=== PATIENT | male | born 1935 | race Caucasian/White ===

== ENCOUNTER 2019-07-08 14:45 | Emergency (ER) | payer MEDICARE, SELFPAY ==
[2019-07-08 15:01] VITALS: BP 153/102; PULSE 71; RESP 16; TEMP 36.9; O2SAT 96; BMI 25.7
--- NOTE | 2019-07-08 15:15 | ECG_ITS ---
Measurements Intervals [place] Rate: 62 P: 44 MT: 166 QRS: -23 QRSD: 94 T: 50 QT: 386 QTc: 395 SINUS RHYTHM BORDERLINE LEFT AXIS DEVIATION [QRS AXIS < -20] INTERPRETATION BASED ON A DEFAULT AGE OF 40 YEARS Compared to ECG 06/06/2015 17:31:21 No significant changes Electronically Signed On 07-08-2019 20:25:43 PUMPER GAGER by Ana Scott M.D. [email or web address] f
[2019-07-08 15:55] LABS: Troponin(5th) Baseline 10 ng/mL (0-15)
--- NOTE | 2019-07-08 17:15 | ECG_ITS ---
Measurements Intervals [place] Rate: 61 P: 73 TN: 170 QRS: -27 QRSD: 96 T: 55 QT: 388 QTc: 392 SINUS RHYTHM BORDERLINE LEFT AXIS DEVIATION [QRS AXIS < -20] Compared to ECG 06/06/2015 17:31:21 No significant changes Electronically Signed On 07-08-2019 20:33:10 SOUND EDITOR by Ana Scott M.D. [id number]
[2019-07-08 17:31] LABS: Troponin 5 2HR 9.58 ng/mL (0-15)
[2019-07-08 17:39] LABS: Troponin 5 2HR Delta -0.42 ABS# (0-10)
--- NOTE | 2019-07-08 18:24 | ED_ITS ---
Entered by Kristi Eli, acting as scribe for Lana Keller MD Jul 08, 2019 14:45 HPI - Chest Pain General: Chief Complaint: Chest Pain Stated Complaint: CP Time Seen by Provider: 07/08/19 18:24 Source: patient and family Mode of arrival: ambulatory Limitations: no limitations History of Present Illness: HPI narrative: 83-year-old male who states he has had a sharp pain for last 3 days. States the pain is worse with inspiration. He denies any pain at rest. Patient is currently pain-free. He has had no vomiting or diarrhea. complaint: chest pain Onset (ago): day(s) (2 days ago) Timing of current episode: constant and still present Prior episodes: Yes Onset: during rest Pain location: substernal Severity: mild Relieving factors: nothing Exacerbating factors: other (deep breaths) Associated symptoms: Reports no associated symptoms; Deny abdominal pain, dyspnea, fever(s), nausea or vomiting Treatment prior to arrival: none Review of Systems General: Reports: 10 or more systems reviewed and unremarkable except in HPI and below Const: Denies: fever, chills, body aches or change in appetite Eyes: Denies: blurry vision or eye discomfort ENMT: Denies: throat pain or dental pain Resp: Denies: shortness of breath GI: Denies: abdominal pain, nausea, vomiting or diarrhea : Denies: painful urination Musc: Denies: neck pain or back pain Skin/Breast: Denies: rash Neuro: Denies: headache Psych: Denies: depression Can/Lymph: Denies: easy bruising All/Imm: Denies: hives PFS ED PFSH: Social History Smoking and tobacco status: never smoked Physical Exam Const: COMMON NORMALS: no apparent distress, oriented x3 and healthy appearing HENMT: COMMON NORMALS: normocephalic and head/scalp atraumatic HEAD & SCALP: normocephalic and atraumatic Eye: COMMON NORMALS: PERRL and EOMs intact bilaterally PUPIL: Yes PERRL Neck/C-Spine: COMMON NORMALS: full ROM and supple Resp: COMMON NORMALS: normal respiratory effort, no retractions, no use of accessory muscles and clear to auscultation bilaterally AUSCULTATION: clear to auscultation bilaterally Cardio: COMMON NORMALS: regular rate, regular rhythm and no murmurs RATE: regular rate RHYTHM: regular rhythm GI: COMMON NORMALS: normal to inspection, nondistended, normoactive bowel sounds, soft to palpation, non-tender and no masses PALPATION: Yes soft Extremity: COMMON NORMALS: normal to inspection and full ROM Neuro: COMMON NORMALS: oriented x3, moves all extremities and no focal motor deficits Psych: COMMON NORMALS: mental status grossly normal, thought process normal and cooperative THOUGHT PROCESS: normal thought process Skin: COMMON NORMALS: no rashes or lesions noted and no wounds GENERAL SKIN EXAM: no rashes or lesions noted Course Vital Signs: Vital signs: Vital Signs Temperature 98.5 F 07/08/19 15:01 Pulse Rate 82 07/08/19 23:07 Respiratory Rate 18 07/08/19 23:07 Blood Pressure 153/102 07/08/19 15:01 Pulse Oximetry 96 07/08/19 23:07 MDM - Chest Pain MDM Narrative: Medical decision making narrative: Patient presents here with chest pain that is atypical in nature. Patient's troponins and CT are normal. Patient has no signs of cardiac cause. CT shows no signs of pulmonary bruising. Patient is well-appearing is stable for discharge he is to follow-up with his primary care doctor in 3 to 5 days return if worsening. Lab Data: Labs: Lab Results 07/08/19 07/08/19 07/08/19 Range/Units 15:28 15:28 15:28 WBC 7.3 (4.0-10.0) 10^3/ uL RBC 5.00 (4.1-5.3) 10^6/u L Hgb 15.3 (11.7-16.6) g/dL Hct 46.8 (42.0-52.0) % MCV 93.6 (80-94) fL MCH 30.6 (28.0-34.0) pg MCHC 32.7 (30.0-36.0) g/dL RDW 13.7 (12.1-15.1) % Plt Count 275 (130-400) 10^3/c mm MPV 10.7 H (7.4-10.4) fL Neut % (Auto) 59.8 % Lymph % (Auto) 27.4 % [place] % (Auto) 8.7 % Eos % (Auto) 2.6 % Baso % (Auto) 1.1 % Neut # (Auto) 4.3 (1.8-7.7) 10^3/u L Lymph # (Auto) 2.0 (0.8-4.8) 10^3/u L [place] # (Auto) 0.6 (0.2-0.9) 10^3/u L Eos # (Auto) 0.2 (0.0-0.8) 10^3/u L Baso # (Auto) 0.1 (0.0-0.1) 10^3/u L Nucleated RBC % (a uto) 0 % Nucleated RBCs # 0.0 /100WBC D-Dimer (0-0.59) ug/mIFE U Sodium 140 (136-145) mmol/L Potassium 4.6 (3.5-5.1) mmol/L Chloride 104 (98-107) mmol/L Carbon Dioxide 25 (22-29) mmol/L Anion Gap 15.6 (5-19) BUN 14 (8-23) mg/dL Creatinine 1.3 H (0.7-1.2) mg/dL Glucose 89 (65-115) mg/dL Calcium 11.4 H (8.5-10.5) mg/dL Total Bilirubin 0.5 (0.15-1.2) mg/dL AST 19 (0-40) U/L ALT 13 (0-41) U/L Alkaline Phosphata se 84 (40-130) IU/L Troponin I 6 Hour (0-15) ng/mL Troponin I Hi Sens Del (0-12) ng/L Troponin T Baselin e 10 (0-15) ng/mL Troponin T 120 Min [place] (0-15) ng/mL Delta Troponin T (0-10) ABS# Total Protein 7.3 (6.6-8.7) g/dL Albumin 4.4 (3.5-5.2) g/dL Globulin 2.9 (1.3-4.6) g/dL 07/08/19 07/08/19 07/08/19 Range/Units 15:28 17:09 21:40 WBC (4.0-10.0) 10^3/ uL RBC (4.1-5.3) 10^6/u L Hgb (11.7-16.6) g/dL Hct (42.0-52.0) % MCV (80-94) fL MCH (28.0-34.0) pg MCHC (30.0-36.0) g/dL RDW (12.1-15.1) % Plt Count (130-400) 10^3/c mm MPV (7.4-10.4) fL Neut % (Auto) % Lymph % (Auto) % [place] % (Auto) % Eos % (Auto) % Baso % (Auto) % Neut # (Auto) (1.8-7.7) 10^3/u L Lymph # (Auto) (0.8-4.8) 10^3/u L [place] # (Auto) (0.2-0.9) 10^3/u L Eos # (Auto) (0.0-0.8) 10^3/u L Baso # (Auto) (0.0-0.1) 10^3/u L Nucleated RBC % (a uto) % Nucleated RBCs # /100WBC D-Dimer 1.66 H (0-0.59) ug/mIFE U Sodium (136-145) mmol/L Potassium (3.5-5.1) mmol/L Chloride (98-107) mmol/L Carbon Dioxide (22-29) mmol/L Anion Gap (5-19) BUN (8-23) mg/dL Creatinine (0.7-1.2) mg/dL Glucose (65-115) mg/dL Calcium (8.5-10.5) mg/dL Total Bilirubin (0.15-1.2) mg/dL AST (0-40) U/L ALT (0-41) U/L Alkaline Phosphata se (40-130) IU/L Troponin I 6 Hour 10.36 (0-15) ng/mL Troponin I Hi Sens Del 0.36 (0-12) ng/L Troponin T Baselin e (0-15) ng/mL Troponin T 120 Min [place] 9.58 (0-15) ng/mL Delta Troponin T -0.42 L (0-10) ABS# Total Protein (6.6-8.7) g/dL Albumin (3.5-5.2) g/dL Globulin (1.3-4.6) g/dL Imaging Data^: CT Chest: Radiologist's impression: Patient: Maikel De La Fuente Unit #: [id number] : 1935 Age/Sex: 83 / M ADM Date: 07/08/19 Loc: ER Room/Bed: Attending Dr: Ordering Provider/Ordering MD: Lana Keller MD Date of Service: 07/08/19 Procedure(s): CT angio chest PE protcl [id number] Accession Number(s): [id number] Report Number: [id number] PROCEDURE INFORMATION: Exam: CT Angiography Chest With Contrast Exam date and time: 07/08/2019 7:16 PM Age: 83 years old Clinical indication: Dyspnea TECHNIQUE: Imaging protocol: Computed tomographic angiography of the chest with intravenous contrast. 3D rendering: MIP and/or 3D reconstructed images were created by the technologist. Total DLP: 652.56 mGy-cm Radiation optimization: All CT scans at this facility use at least one of these dose optimization techniques: automated exposure control; mA and/or kV adjustment per patient size (includes targeted exams where dose is matched to clinical indication); or iterative reconstruction. Contrast material: VISI; Contrast volume: 95 ml; Contrast route: IV; COMPARISON: CT chest con [id number] 12/07/2015 11:53 AM FINDINGS: Pulmonary arteries: No visible pulmonary embolism. Aorta: Thoracic aorta is nonaneurysmal with mild arterial sclerotic disease. No visible intimal flap or dissection. Proximal abdominal aorta was not aneurysmal. Mild intramural thrombus. Mild arteriosclerotic disease. Lungs: Minimal dependent atelectasis lung bases. Stable calcified 6 mm granuloma apical posterior segment left upper lobe. Stable small focus of ground-glass interstitial lung disease measuring 10 mm x 5 mm since 12/07/2015. This most likely reflects parenchymal scar from an antecedent infection. Doubt of clinical significance. Mild centrilobular emphysema. No visible evidence of active interstitial or alveolar airspace disease. Pleural space: Unremarkable. No pneumothorax. No pleural effusion. Heart: Coronary artery calcifications. No cardiomegaly. No pericardial effusion. Mediastinum: Large hiatal hernia. Liver: Liver and spleen with calcified granulomas. Gallbladder and bile ducts: Gallbladder free of cholelithiasis. No visible intra or extrahepatic biliary ectasia. Pancreas: Pancreas unremarkable. Adrenals: Adrenal glands unremarkable. Kidneys and ureters: Kidneys within the field of view unremarkable for age. Mild perinephric stranding which is a nonspecific finding. Stomach and bowel: Hollow viscus within the field of view without evidence for active pathology. Diverticulosis coli without evidence for diverticulitis. Lymph nodes: Stable marginally prominent middle and posterior mediastinal lymph nodes since 2016. Bones/joints: Skeletal structures unremarkable for age. No visible osteolytic or osteoblastic destructive process within the field of view. Soft tissues: Unremarkable. CT/CT angio chest PE protcl [id number] IMPRESSION: 1. No visible evidence for pulmonary embolism. 2. Numerous non urgent/nonemergent, chronic, and age related findings as detailed in text above. Discharge Plan Discharge Patient Disposition: Home, Self-Care Clinical Impression: Chest pain Qualifiers: Chest pain type: unspecified Qualified Code(s): R07.9 - Chest pain, unspecified Condition: Stable Prescriptions: New EC-Naprosyn 500 mg tablet,delayed release (DR/EC) 500 mg PO BID PRN (Reason: pain) Qty: 20 RF: 0 Discharge Orders: Discharge Order (Routine); Ordered 07/08/19 Ordered By: Lana Keller Referrals: Hillary Jones SUPERVISOR PAINT [Family Provider] - Discharge Diet: Advance as tolerated Discharge Activity: Resume usual activity Patient Instructions: Chest Pain (ED) Discharge Date/Time: 07/08/19 23:07 Coding Level of Care Code ED Disability Liaison Officer for Chg Fwd Exam Comprehensive The documentation recorded by the Sreedhar winslow Bridget Annette, accurately reflects the service I personally performed and the decisions made by Arianna manzo Korby, MD Jul 08, 2019 14:45
--- NOTE | 2019-07-08 18:24 | XR_ITS ---
WS: [id number] XR chest 1V portable [id number] REASON FOR EXAM: cp FINDINGS: Comparisons were made to March 27, 2018. A calcified granuloma seen in the left hilum. The heart and mediastinal interfaces are normal. The lung prieto are well aerated. No pneumonia, pleural effusion, pulmonary edema, or mass effect. No evidence of pneumothorax. The hilum and apices otherwise normal. XR/XR chest 1V portable [id number] IMPRESSION: Negative chest for active pathology.
[2019-07-08 18:43] LABS: Basophils # 0.1 10^3/uL (0.0-0.1); Basophils % 1.1 %; Eosinophils # 0.2 10^3/uL (0.0-0.8); Eosinophils % 2.6 %; Hematocrit 46.8 % (42.0-52.0); Hemoglobin 15.3 g/dL (11.7-16.6); Lymphocytes % 27.4 %; Mean Corpuscular HGB Conc 32.7 g/dL (30.0-36.0); Mean Corpuscular Hemoglobin 30.6 pg (28.0-34.0); Mean Corpuscular Volume 93.6 fL (80-94); Mean Platelet Volume 10.7 fL (7.4-10.4); Monocytes # 0.6 10^3/uL (0.2-0.9); Monocytes % 8.7 %; Neutrophils # 4.3 10^3/uL (1.8-7.7); Neutrophils % 59.8 %; Nucleated Red Blood Cells % 0 %; Platelet Count 275 10^3/cmm (130-400); Red Cell Distribution Width 13.7 % (12.1-15.1); White Blood Count 7.3 10^3/uL (4.0-10.0)
--- NOTE | 2019-07-08 18:45 | PC.NURSE ---
Patient states that he started with chest pain over the past few days that occurs at rest with deep inspiration. Patient states the pain is shooting/stabbing from left chest and into the back lasting for just a few seconds. Patient denies any current pain at this time. Will continue to monitor.
[2019-07-08 18:59] LABS: D Dimer 1.66 ug/mIFEU (0-0.59)
[2019-07-08 19:02] LABS: Alanine Aminotransferase 13 U/L (0-41); Albumin Level 4.4 g/dL (3.5-5.2); Alkaline Phosphatase 84 IU/L (40-130); Anion Gap 15.6 (5-19); Aspartate Amino Transferase 19 U/L (0-40); Blood Urea Nitrogen 14 mg/dL (8-23); Calcium 11.4 mg/dL (8.5-10.5); Carbon Dioxide 25 mmol/L (22-29); Chloride 104 mmol/L (98-107); Globulin 2.9 g/dL (1.3-4.6); Glucose 89 mg/dL (65-115); Potassium 4.6 mmol/L (3.5-5.1); Sodium 140 mmol/L (136-145); Total Bilirubin 0.5 mg/dL (0.15-1.2); Total Protein 7.3 g/dL (6.6-8.7)
--- NOTE | 2019-07-08 19:02 | CTR_ITS ---
PROCEDURE INFORMATION: Exam: CT Angiography Chest With Contrast Exam date and time: 07/08/2019 7:16 PM Age: 83 years old Clinical indication: Dyspnea TECHNIQUE: Imaging protocol: Computed tomographic angiography of the chest with intravenous contrast. 3D rendering: MIP and/or 3D reconstructed images were created by the technologist. Total DLP: 652.56 mGy-cm Radiation optimization: All CT scans at this facility use at least one of these dose optimization techniques: automated exposure control; mA and/or kV adjustment per patient size (includes targeted exams where dose is matched to clinical indication); or iterative reconstruction. Contrast material: VISI; Contrast volume: 95 ml; Contrast route: IV; COMPARISON: CT chest wo con [id number] 12/07/2015 11:53 AM FINDINGS: Pulmonary arteries: No visible pulmonary embolism. Aorta: Thoracic aorta is nonaneurysmal with mild arterial sclerotic disease. No visible intimal flap or dissection. Proximal abdominal aorta was not aneurysmal. Mild intramural thrombus. Mild arteriosclerotic disease. Lungs: Minimal dependent atelectasis lung bases. Stable calcified 6 mm granuloma apical posterior segment left upper lobe. Stable small focus of ground-glass interstitial lung disease measuring 10 mm x 5 mm since 12/07/2015. This most likely reflects parenchymal scar from an antecedent infection. Doubt of clinical significance. Mild centrilobular emphysema. No visible evidence of active interstitial or alveolar airspace disease. Pleural space: Unremarkable. No pneumothorax. No pleural effusion. Heart: Coronary artery calcifications. No cardiomegaly. No pericardial effusion. Mediastinum: Large hiatal hernia. Liver: Liver and spleen with calcified granulomas. Gallbladder and bile ducts: Gallbladder free of cholelithiasis. No visible intra or extrahepatic biliary ectasia. Pancreas: Pancreas unremarkable. Adrenals: Adrenal glands unremarkable. Kidneys and ureters: Kidneys within the field of view unremarkable for age. Mild perinephric stranding which is a nonspecific finding. Stomach and bowel: Hollow viscus within the field of view without evidence for active pathology. Diverticulosis coli without evidence for diverticulitis. Lymph nodes: Stable marginally prominent middle and posterior mediastinal lymph nodes since 2015. Bones/joints: Skeletal structures unremarkable for age. No visible osteolytic or osteoblastic destructive process within the field of view. Soft tissues: Unremarkable. CT/CT angio chest PE protcl [id number] IMPRESSION: 1. No visible evidence for pulmonary embolism. 2. Numerous non urgent/nonemergent, chronic, and age related findings as detailed in text above. Radiation Dose CTDIVOL = (mGy): DLP = 652.56 (mGy-cm)
[2019-07-08] MEDS: hyDRALAzine 20 mg/mL INJ 1 mL 10 MG IVP (20:56)
[2019-07-08] MEDS: diphenhydrAMINE 50 mg/mL SDV 1mL IVP (20:57)
[2019-07-08] MEDS: hydrocortisone 100 mg/2 mL SDV IVP (20:57)
[2019-07-08] MEDS: iodixanol 320 mg/mL 100mL Btl IV (21:12)
[2019-07-08 21:57] LABS: Troponin 5 6HR 10.36 ng/mL (0-15); Troponin 5 6HR Delta 0.36 ng/L (0-12)
[2019-07-08] MEDS: ondansetron 2 mg/ML SDV 2 mL 4 MG IVP (22:02)
[2019-07-08] MEDS: sodium chloride 0.9% 1,000 ML 999 ML IV (22:02)
[2019-07-08 23:07] VITALS: PULSE 82; RESP 18; O2SAT 96
== END 2019-07-08 23:07 | disposition home or self-care (01) ==
PROVIDERS: Family Medicine; Emergency Provider Emergency Medicine; Family Provider Nurse Practitioner Primary Care
DX: R07.9 Chest pain, unspecified (principal)
CPT/HCPCS: 36415; 71045; 71275; 80053; 84484; 85025; 85378; 93005; 96361; 96374; 96375; 99282; 99284; J0360; J1200; J1720; J2405; J7030; Q9967

== ENCOUNTER 2019-09-13 07:38 | Emergency (ER) | payer MEDICARE, SELFPAY ==
[2019-09-13 07:40] VITALS: BP 188/87; PULSE 62; RESP 16; TEMP 36.9; O2SAT 95; BMI 25.2
--- NOTE | 2019-09-13 07:56 | W.ED.GENADLT ---
HPI - General Adult General: Chief complaint: General Medical Stated complaint: Left flank/side pain post-op Time Seen by Provider: 09/13/19 07:41 History of Present Illness: HPI narrative: 83-year-old male comes in with left flank pain. Worse with deep inspiration. Began early this morning around 4 AM he is not had any skin changes or rash. He did have an angiogram with stenting yesterday denies any chest pain he does have some shortness of breath but he says that is chronic and has not really changed at all he denies fever sweats or chills no dysuria urgency or frequency or abdominal pain no noticed hematuria no history of renal stones no nausea vomiting or diarrhea. Called and discussed with a physician who he seen yesterday. 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 Onset (ago): hour(s) Location: abdomen (Left flank pain) Radiation: non-radiation Severity: severe Quality: stabbing Pain Consistency: intermittent Relieving factors: none Exacerbating factors: other (Deep breath) Associated symptoms: Reports dyspnea; Deny chest pain, cough, diaphoresis, nausea, rash, vomiting or weakness Treatments prior to arrival: none Review of Systems Const: Denies: diaphoresis ENMT: Denies: throat pain, ear pain, nasal discharge or nasal congestion Card: Denies: chest pain Resp: Reports: shortness of breath GI: Denies: nausea or vomiting : Denies: flank pain, painful urination, urinary frequency or urinary urgency Skin/Breast: Denies: rash or itching [facility] ED PFSH: Medical History (Updated 09/13/19 @ 11:09 by Osman Fox DO) BPH (benign prostatic hyperplasia) Coronary artery disease Pneumothorax Surgical History (Updated 09/13/19 @ 07:59 by Osman Fox DO) H/O vasectomy History of appendectomy S/P TURP Social History (Updated 09/13/19 @ 07:59 by Osman Fox DO) Smoking and tobacco status: former smoker Alcohol intake: never Physical Exam Const: COMMON NORMALS: no apparent distress GENERAL APPEARANCE: cooperative and comfortable ORIENTATION/CONSCIOUSNESS: Yes awake, Yes oriented to person, Yes oriented to place and Yes oriented to time HENMT: COMMON NORMALS: normocephalic, head/scalp atraumatic, hearing grossly normal bilaterally, external ears normal, EAC's normal, TM's normal bilaterally, nasal mucous membranes and turbinates normal, moist oral mucous membranes and oropharynx normal HEAD & SCALP: normocephalic and atraumatic NOSE: nasal mucous membranes and turbinates normal EXTERNAL EAR: Yes external ears normal EXTERNAL AUDITORY CANAL: EAC's normal TYMPANIC MEMBRANE: TM's normal bilaterally Eye: COMMON NORMALS: PERRL, EOMs intact bilaterally, conjunctivae normal and no scleral icterus CONJUNCTIVA: Yes conjunctivae normal PUPIL: Yes PERRL Neck/C-Spine: COMMON NORMALS: full ROM, no lymphadenopathy, supple and no JVD Lymph: LYMPHATIC: no lymphadenopathy noted and no lymphedema noted Resp: COMMON NORMALS: normal respiratory effort, no retractions, no use of accessory muscles and clear to auscultation bilaterally AUSCULTATION: clear to auscultation bilaterally Cardio: COMMON NORMALS: no JVD, regular rate, regular rhythm and no murmurs RATE: regular rate RHYTHM: regular rhythm GI: COMMON NORMALS: soft to palpation and no hepatosplenomegaly AUSCULTATION: Yes normoactive bowel sounds PALPATION: Yes soft, No tender, No guarding and Yes no hepatosplenomegaly Extremity: COMMON NORMALS: normal to inspection, normal capillary refill, no clubbing, cyanosis or edema, no calf tenderness and no pedal edema Neuro: SENSORIUM/ORIENTATION: Yes oriented to person, Yes oriented to place and Yes oriented to time Skin: COMMON NORMALS: no rashes or lesions noted GENERAL SKIN EXAM: no rashes or lesions noted Course Vital Signs: Vital signs: Vital Signs Temperature 98.5 F 09/13/19 07:40 Pulse Rate 75 09/13/19 11:23 Respiratory Rate 19 H 09/13/19 11:23 Blood Pressure 173/89 09/13/19 11:23 Pulse Oximetry 97 09/13/19 11:23 MDM - General Adult MDM Narrative: Medical decision making narrative: Called and discussed the vascular surgeon who did the stenting he had done yesterday. It was actually a subclavian stent by a wrist approach so potential for emboli shower from that to the spleen is really 0. 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 If he has significant worsening symptoms needs to return to the emergency room. Lab Data: Labs: Lab Results 09/13/19 09/13/19 09/13/19 Range/Units 08:17 08:45 08:45 WBC 10.7 H (4.0-10.0) 10^3/ uL RBC 4.85 (4.1-5.3) 10^6/u L Hgb 14.9 (11.7-16.6) g/dL Hct 45.7 (42.0-52.0) % MCV 94.2 H (80-94) fL MCH 30.7 (28.0-34.0) pg MCHC 32.6 (30.0-36.0) g/dL RDW 13.6 (12.1-15.1) % Plt Count 234 (130-400) 10^3/c mm MPV 10.0 (7.4-10.4) fL Neut % (Auto) 67.6 % Lymph % (Auto) 18.9 % [facility] % (Auto) 10.3 % Eos % (Auto) 2.1 % Baso % (Auto) 0.5 % Neut # (Auto) 7.2 (1.8-7.7) 10^3/u L Lymph # (Auto) 2.0 (0.8-4.8) 10^3/u L [place] # (Auto) 1.1 H (0.2-0.9) 10^3/u L Eos # (Auto) 0.2 (0.0-0.8) 10^3/u L Baso # (Auto) 0.1 (0.0-0.1) 10^3/u L Nucleated RBC % (a uto) 0 % Nucleated RBCs # 0.0 /100WBC Sodium 140 (136-145) mmol/L Potassium 4.4 (3.5-5.1) mmol/L Chloride 103 (98-107) mmol/L Carbon Dioxide 28 (22-29) mmol/L Anion Gap 13.4 (5-19) BUN 14 (8-23) mg/dL Creatinine 1.4 H (0.7-1.2) mg/dL Glucose 115 (65-115) mg/dL Calculated Osmolal ity 287 (285-295) mOsm/k g Calcium 10.0 (8.5-10.5) mg/dL Total Bilirubin 0.6 (0.15-1.2) mg/dL AST 18 (0-40) U/L ALT 13 (0-41) U/L Alkaline Phosphata se 78 (40-130) IU/L Total Protein 6.7 (6.6-8.7) g/dL Albumin 3.7 (3.5-5.2) g/dL Globulin 3.0 (1.3-4.6) g/dL Lipase 25 (13-60) U/L Urine Color Yellow (Yellow) Urine Appearance Clear (CLEAR) Urine pH 7 (5-7) Ur Specific Gravit y 1.005 (1.005-1.030) Urine Protein Neg (Negative) Urine Glucose (UA) Norm (Normal) Urine Ketones Negative (Negative) Urine Blood Neg (Negative) Urine Nitrate Negative (Negative) Urine Bilirubin Neg (NEGATIVE) Urine Urobilinogen Norm (Negative) mg/dL Ur Leukocyte Simran ase Negative (Negative) Imaging Data^: CT Abd/Pel: Radiologist's impression: CT abdomen pelvis w con* [id number] REASON FOR EXAM: abd pain IV CONTRAST ADMINISTERED: 95 mL Visipaque 320 95 mL TOTAL EXAM DLP: 587.[address] scans at [facility] use at least one of these dose optimization techniques: automated exposure control; mA and/or kV adjustment per patient size (includes targeted exams where dose is matched to clinical indication); or iterative reconstruction. FINDINGS: A prominent hiatal hernia is evident. The lower lungs appear to be essentially normal. The spleen shows hypodensities throughout the spleen consistent and suggestive of splenic infarction. Small calcified granulomas are again seen throughout the spleen. The liver was within normal limits. The gallbladder was sonolucent no stones are seen in the gallbladder. The head, body, tail of the pancreas were normal. The stomach showed no gross abnormalities other than the hiatal hernia. Aorta proximally measured 3.28 cm. Distally above the bifurcation measures 4.2 cm consistent with aneurysmal changes. The right and left kidneys were essentially normal. The left kidney shows very small cysts. The adrenal glands bilaterally were normal. The right colon appear to be normal appendix was not seen. The small bowel pattern appear to be normal. The urinary bladder was somewhat contracted deviated is toward the right side and there appears to be a small prostate evident. The anorectal area was normal. No masses are seen. The right inguinal area shows a small hernia no bowel in the hernia. The bony pelvis was essentially normal. Mild degenerate changes in the lumbar spine. 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 Small inguinal hernia with no bowel in the hernia on the right side. Dictated By:Gary Wu DO Discharge Plan Discharge Patient Disposition: Home, Self-Care Clinical Impression: Infarction of spleen Condition: Stable Prescriptions: New hydrocodone-acetaminophen 5-325 mg tablet 1 tab PO Q6H PRN (Reason: pain) Qty: 20 RF: 0 Discontinued acetaminophen-codeine 300-30 mg tablet 1 tab PO Q6H PRN (Reason: Pain) RF: 0 No Action atorvastatin 40 mg tablet 40 mg PO DAILY RF: 0 clopidogrel 75 mg tablet 75 mg PO DAILY RF: 0 losartan 25 mg tablet 25 mg PO DAILY RF: 0 aspirin 81 mg Tablet,Chewable 81 mg PO DAILY RF: 0 Discharge Orders: Discharge Order (Routine); Ordered 09/13/19 Ordered By: Osman Fox Discharge Diet: Usual diet Discharge Activity: Increase activity as tolerated Activity Restrictions/Additional Instructions: Follow-up with your regular doctor on Monday or Monday. Return if any further problems. Discharge Date/Time: 09/13/19 11:23 Coding Level of Care Code ED Electronic Scale Tester for Juan David Fwd Exam Comprehensive
--- NOTE | 2019-09-13 08:24 | XR_ITS ---
WS: [id number] XR chest 1V portable [id number] REASON FOR EXAM: dyspnea/cough FINDINGS: A stent is seen on the left side along the subclavian artery. The heart is not enlarged. The lung prieto are well aerated. Scattered granulomas are noted. No pneumothorax is noted. The lung prieto show no pneumonia, pleural effusion, pulmonary edema, or mass effect. XR/XR chest 1V portable [id number] IMPRESSION: Negative chest for acute findings.
--- NOTE | 2019-09-13 08:24 | ECG_ITS ---
Measurements Intervals [place] Rate: 61 P: 34 [place]: 165 QRS: -28 QRSD: 94 T: 31 QT: 379 QTc: 384 SINUS RHYTHM WITH SINUS ARRHYTHMIA BORDERLINE LEFT AXIS DEVIATION [QRS AXIS < -20] Compared to ECG 07/08/2019 17:45:59 No significant changes Electronically Signed On 09-13-2019 12:22:32 CDT by Akila Fisher M.D. [id number] f
--- NOTE | 2019-09-13 08:24 | CT_ITS ---
WS: [id number] CT abdomen pelvis w con* [id number] REASON FOR EXAM: abd pain IV CONTRAST ADMINISTERED: 95 mL Visipaque 320 95 mL TOTAL EXAM DLP: 587.[address] scans at [facility] use at least one of these dose optimization techniques: automat ed exposure control; mA and/or kV adjustment per patient size (includes targeted exams where dose is matched to clinical indication); or iterative reconstruction. FINDINGS: A prominent hiatal hernia is evident. The lower lungs appear to be essentially normal. The spleen shows hypodensities throughout the spleen consistent and suggestive of splenic infarction. Small calcified granulomas are again seen throughou t the spleen. The liver was within normal limits. The gallbladder was sonolucent no stones are seen in the gallbladder. The head, body, tail of the pancreas were normal. The stomach showed no gross abnormalities other than the hiatal hernia. Aorta proximally measured 3.28 cm. Distally above the bifurcation measures 4.2 cm consistent with ane urysmal changes. The right and left kidneys were essentially normal. The left kidney shows very small cysts. The adrenal glands bilaterally were normal. The right colon appear to be normal appendix was not seen . The small bowel pattern appear to be normal. The urinary bladder was somewhat contracted deviated is toward the right side and there appears to be a small prostate evident. The anorectal area was normal. No masses are seen. The right inguinal area shows a small hernia no bowel in the hernia. The bony pelvis was essentially normal. Mild degenerate changes in the lumbar spine. 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 Small inguinal hernia with no bowel in the hernia on the right side.
[2019-09-13 08:45] LABS: Add Urine Microscopic? NO
[2019-09-13 08:48] LABS: Bilirubin Urine Neg (NEGATIVE); Blood Urine Neg (Negative); Glucose Urine UA Norm (Normal); Ketones Urine Negative (Negative); Leukocyte Esterase Urine Negative (Negative); Nitrate Urine Negative (Negative); Protein Urine Neg (Negative); Specific Gravity, Urine 1.005 (1.005-1.030); Urine Appearance Clear (CLEAR); Urine Color Yellow (Yellow); Urobilinogen Urine Norm (Negative); pH Urine 7 (5-7)
[2019-09-13 08:57] LABS: Basophils # 0.1 10^3/uL (0.0-0.1); Basophils % 0.5 %; Eosinophils # 0.2 10^3/uL (0.0-0.8); Eosinophils % 2.1 %; Hematocrit 45.7 % (42.0-52.0); Hemoglobin 14.9 g/dL (11.7-16.6); Lymphocytes % 18.9 %; Mean Corpuscular HGB Conc 32.6 g/dL (30.0-36.0); Mean Corpuscular Hemoglobin 30.7 pg (28.0-34.0); Mean Corpuscular Volume 94.2 fL (80-94); Monocytes # 1.1 10^3/uL (0.2-0.9); Monocytes % 10.3 %; Neutrophils # 7.2 10^3/uL (1.8-7.7); Neutrophils % 67.6 %; Nucleated Red Blood Cells % 0 %; Platelet Count 234 10^3/cmm (130-400); Red Blood Count 4.85 10^6/uL (4.1-5.3); Red Cell Distribution Width 13.6 % (12.1-15.1); White Blood Count 10.7 10^3/uL (4.0-10.0)
[2019-09-13 09:07] LABS: Alanine Aminotransferase 13 U/L (0-41); Albumin Level 3.7 g/dL (3.5-5.2); Alkaline Phosphatase 78 IU/L (40-130); Anion Gap 13.4 (5-19); Aspartate Amino Transferase 18 U/L (0-40); Blood Urea Nitrogen 14 mg/dL (8-23); Carbon Dioxide 28 mmol/L (22-29); Chloride 103 mmol/L (98-107); Glucose 115 mg/dL (65-115); Lipase 25 U/L (13-60); Osmolality Calculated 287 mOsm/kg (285-295); Potassium 4.4 mmol/L (3.5-5.1); Sodium 140 mmol/L (136-145); Total Bilirubin 0.6 mg/dL (0.15-1.2); Total Protein 6.7 g/dL (6.6-8.7)
[2019-09-13] MEDS: hydrocortisone 100 mg/2 mL SDV IVP (09:07)
[2019-09-13] MEDS: diphenhydrAMINE 50 mg/mL SDV 1mL IVP (09:07)
[2019-09-13] MEDS: iodixanol 320 mg/mL 100mL Btl IV (09:28)
[2019-09-13 11:23] VITALS: BP 173/89; PULSE 75; RESP 19; O2SAT 97
== END 2019-09-13 11:23 | disposition home or self-care (01) ==
PROVIDERS: Emergency Provider Family Medicine
DX: D73.5 Infarction of spleen (principal); Z79.02 Long term (current) use of antithrombotics/antiplatelets; Z79.82 Long term (current) use of aspirin; I25.10 Atherosclerotic heart disease of native coronary artery without angina pectoris; Z87.891 Personal history of nicotine dependence
CPT/HCPCS: 12345; 36415; 71045; 74177; 80053; 81003; 83690; 85025; 93005; 96374; 96375; 99283; A9270; J1200; J1720; Q9967

== ENCOUNTER 2020-12-15 14:39 | Outpatient (CLI) | payer MEDICARE, SELFPAY ==
[2020-12-15 15:06] LABS: Basophils # 0.1 10^3/uL (0.0-0.1); Basophils % 0.9 %; Eosinophils # 0.3 10^3/uL (0.0-0.8); Eosinophils % 3.1 %; Hematocrit 44.6 % (42.0-52.0); Hemoglobin 14.4 g/dL (11.7-16.6); Lymphocytes # 2.4 10^3/uL (0.8-4.8); Lymphocytes % 27.7 %; Mean Corpuscular HGB Conc 32.3 g/dL (30.0-36.0); Mean Corpuscular Hemoglobin 29.8 pg (28.0-34.0); Mean Corpuscular Volume 92.3 fL (80-94); Mean Platelet Volume 9.8 fL (7.4-10.4); Monocytes # 0.6 10^3/uL (0.2-0.9); Monocytes % 7.1 %; Neutrophils # 5.34 10^3/uL (1.8-7.7); Neutrophils % 60.9 %; Nucleated Red Blood Cells % 0 %; Platelet Count 259 10^3/cmm (130-400); Red Blood Count 4.83 10^6/uL (4.1-5.3); Red Cell Distribution Width 13.3 % (12.1-15.1); White Blood Count 8.8 10^3/uL (4.0-10.0)
[2020-12-15 15:22] LABS: Urine Creatinine 105 mg/dL (39-259); Urine Protein Random 12 mg/dL
[2020-12-15 15:23] LABS: UPRO/UCREAT Ratio 0.11 mg/mg CR
[2020-12-15 15:39] LABS: Calcium 9.9 mg/dL (8.5-10.5)
[2020-12-15 15:41] LABS: Parathyroid Hormone 185.5 pg/mL (15-65)
[2020-12-15 15:58] LABS: 25 Hydroxy Vitamin D 26 ng/mL (30-100); Albumin Level 4.2 g/dL (3.5-5.2); Anion Gap 11.5 (5-19); Blood Urea Nitrogen 14 mg/dL (8-23); Calcium 10.1 mg/dL (8.5-10.5); Carbon Dioxide 26 mmol/L (22-29); Chloride 105 mmol/L (98-107); Glucose 131 mg/dL (65-115); Phosphorus 2.2 mg/dL (2.5-4.5); Potassium 4.5 mmol/L (3.5-5.1); Sodium 138 mmol/L (136-145)
== END 2020-12-15 14:40 | disposition home or self-care (01) ==
PROVIDERS: Visit Provider Internal Medicine
DX: N18.32 Chronic kidney disease, stage 3b (principal)
CPT/HCPCS: 36415; 80069; 82306; 82310; 82570; 83970; 84156; 85025

== ENCOUNTER 2020-12-21 13:39 | Outpatient (CLI) | payer MEDICARE, SELFPAY ==
[2020-12-21 15:10] LABS: Alanine Aminotransferase 17 U/L (0-41); Albumin Level 4.4 g/dL (3.5-5.2); Alkaline Phosphatase 95 IU/L (40-130); Aspartate Amino Transferase 21 U/L (0-40); Globulin 2.8 g/dL (1.3-4.6); Total Bilirubin 0.4 mg/dL (0.15-1.2); Total Protein 7.2 g/dL (6.6-8.7)
[2020-12-22 08:18] LABS: PROTEIN, TOTAL 7.2 g/dL (6.1-8.1)
[2020-12-22 12:06] LABS: KAPPA/LAMBDA LIGHT CHAINS FREE 1.47 (0.26-1.65); LAMBDA LIGHT CHAIN, FREE, SERU 19.1 mg/L (5.7-26.3)
[2020-12-22 14:29] LABS: ALBUMIN 4.3 g/dL (3.8-4.8); ALPHA 1 GLOBULIN 0.3 g/dL (0.2-0.3); ALPHA 2 GLOBULIN 0.9 g/dL (0.5-0.9); BETA 1 GLOBULIN 0.4 g/dL (0.4-0.6); BETA 2 GLOBULIN 0.4 g/dL (0.2-0.5)
== END 2020-12-21 13:40 | disposition home or self-care (01) ==
LOC: LAB 13:49
PROVIDERS: Visit Provider Internal Medicine
DX: E83.52 Hypercalcemia (principal)
CPT/HCPCS: 80076; 83883; 84155; 84165

== ENCOUNTER 2021-04-07 12:59 | Emergency (ER) | payer MEDICARE, SELFPAY ==
[2021-04-07 13:21] VITALS: BP 123/65; PULSE 55; RESP 18; TEMP 36.1; O2SAT 97; BMI 24.4
--- NOTE | 2021-04-07 13:46 | ED_ITS ---
HPI - Dizziness General: Chief Complaint: Dizziness Stated Complaint: DIZZY Time Seen by Provider: 04/07/21 13:29 History of Present Illness: HPI Narrative: Patient just finished a round of antibiotics for strep throat. Patient has fullness in his ears and has dizziness when moving his head quickly this started yesterday to get worse and been going on for the last few days. Denies chest pain shortness of breath there heart problems. Is currently being worked up for chronic kidney disease. MD elicited complaint: dizziness Pertinent past history: inner ear problems and other (Recent treatment for strep throat) Onset (ago): day(s) Timing: gradual onset Severity: mild Description: sense of movement Context: change in medication Relieving factors: remaining still Associated symptoms: Reports no associated symptoms; Denies chest pain, chills, headache(s), nausea, nasal congestion or vomiting Associated neuro symptoms: Reports no associated symptoms Review of Systems Const: Denies: fever(s), chills or body aches Eyes: Denies: change in vision or blurry vision ENMT: Denies: throat pain or nasal congestion Card: Denies: chest pain or dyspnea on exertion Resp: Denies: dyspnea, productive cough or non-productive cough GI: Denies: abdominal pain, nausea or vomiting : Denies: difficulty urinating Musc: Denies: extremity pain Skin/Breast: Denies: rash Neuro: Reports: dizziness; Denies: headache(s) Psych: Denies: anxiety or depression Can/Lymph: Denies: easy bruising PFSH ED PFSH: Medical History (Updated 04/07/21 @ 13:41 by SYDNIE Contreras) BPH (benign prostatic hyperplasia) Coronary artery disease Pneumothorax Surgical History (Updated 09/13/19 @ 07:59 by Osman Fox DO) H/O vasectomy History of appendectomy S/P TURP Social History (Updated 09/13/19 @ 07:59 by Osman Fox DO) Smoking and tobacco status: former smoker Alcohol intake: never Physical Exam Const: COMMON NORMALS: no acute distress, average body habitus and patient oriented x3 HENMT: COMMON NORMALS: normocephalic HEAD & SCALP: normal to inspection and normocephalic FACE & SINUS: normal facial exam TYMPANIC MEMBRANE: TM normal on the left and TM abnormal TM laterality: right Details: fluid behind TM and loss of landmarks THROAT: posterior oropharynx normal Eye: COMMON NORMALS: conjunctivae normal GENERAL EYE: appearance normal, both eyes and all related structures CONJUNCTIVA: Yes conjunctivae normal Neck/C-Spine: COMMON NORMALS: no lymphadenopathy and no JVD Chest: COMMONS NORMALS: normal inspection of the chest Resp: COMMON NORMALS: normal respiratory effort and clear to auscultation bilaterally AUSCULTATION: clear to auscultation bilaterally Cardio: COMMON NORMALS: no JVD, regular rate and regular rhythm RATE: regular rate RHYTHM: regular rhythm GI: COMMON NORMALS: Normal to inspection, nondistended, normoactive bowel sounds present Extremity: COMMON NORMALS: normal to inspection and full ROM Neuro: COMMON NORMALS: patient oriented x3 Course 2 Vital Signs: Vital signs: Vital Signs Temperature 97 F L 04/07/21 13:21 Pulse Rate 55 L 04/07/21 13:21 Respiratory Rate 18 04/07/21 13:21 Blood Pressure 123/65 04/07/21 13:21 Pulse Oximetry 97 04/07/21 13:21 MDM - Dizziness MDM Narrative: Medical decision making narrative: Patient presents with dizziness with movement. Had a recent strep infection was on antibiotics. Physical exam was noncontributory except fluid behind the right eardrum. Patient did have dizziness with sudden movement of the head. No nystagmus noted. Throat without lymphadenopathy or edema. Heart rate was normal. Patient diagnosed with inner ear dysfunction patient follow-up chiropractor and family medical provider. Discharge Plan Discharge Patient Disposition: Home Clinical Impression: Inner ear dysfunction Qualifiers: Laterality: bilateral Qualified Code(s): H83.93 - Unspecified disease of inner ear, bilateral Condition: Stable Prescriptions: New prednisone 20 mg tablet 20 mg PO DAILY Qty: 7 RF: 0 meclizine 25 mg tablet 12.5 mg PO QID PRN (Reason: dizziness) Qty: 14 RF: 0 Afrin (oxymetazoline) 0.05 % spray,non-aerosol 2 spray intranasal BID 3 Days Qty: 15 RF: 0 No Action atorvastatin 40 mg tablet 40 mg PO DAILY RF: 0 clopidogrel 75 mg tablet 75 mg PO DAILY RF: 0 losartan 25 mg tablet 25 mg PO DAILY RF: 0 aspirin 81 mg Tablet,Chewable 81 mg PO DAILY RF: 0 hydrocodone-acetaminophen 5-325 mg tablet 1 tab PO Q6H PRN (Reason: pain) Qty: 20 RF: 0 Discharge Orders: Discharge ED (Routine); Ordered 04/07/21 Ordered By: Joseluis Henderson Discharge Diet: Usual diet Discharge Activity: Increase activity as tolerated Patient Instructions: Vertigo (ED) Activity Restrictions/Additional Instructions: Follow-up with medical provider as directed. Take medications as prescribed. Return to the ER or your medical provider if condition worsens. Please read and understand discharge instructions. If any questions ask please. Can follow-up chiropractor to have it Hallpike maneuver performed. Coding Level of Care Code ED Diabetes Educator for Santanag Fwd Exam Comprehensive
== END 2021-04-07 13:45 | disposition home or self-care (01) ==
PROVIDERS: Emergency Provider Nurse Practitioner Family; PCP Nurse Practitioner Primary Care
DX: H83.93 Unspecified disease of inner ear, bilateral (principal); Z79.02 Long term (current) use of antithrombotics/antiplatelets; Z79.82 Long term (current) use of aspirin; I25.10 Atherosclerotic heart disease of native coronary artery without angina pectoris; Z87.891 Personal history of nicotine dependence
CPT/HCPCS: 99282

== ENCOUNTER 2024-11-30 09:07 | Emergency (ER) | payer MEDICARE, SELFPAY ==
[2024-11-30] VITALS (9 sets, daily range): BP systolic 143–204; BP diastolic 62–92; PULSE 63–85; RESP 16–25; TEMP 36.3; O2SAT 95–100; BMI 25.0
--- NOTE | 2024-11-30 09:12 | ECG_ITS ---
[facility] Test Date: 2024-11-30 Pat Name: Maikel De La Fuente Department: Room: Gender: Male Sort Operations Supervisor: : 1935 Requested By: Osman Mckay Order Number: [id number] Reading MD: Measurements Intervals [place] Rate: 65 P: 52 [place]: 179 QRS: -36 QRSD: 93 T: 69 QT: 387 QTc: 405 Interpretive Statements SINUS RHYTHM LEFT AXIS DEVIATION [QRS AXIS < -30] MINIMAL ST DEPRESSION [0.025+ mV ST DEPRESSION] No previous ECG available for comparison [email or web address] [id number]
--- OUTSIDE RECORDS SUMMARY | 2024-11-30 09:13 | XMS_ITS | Encounter Summary ---
Author Organization [facility] Address [address] [place] [address] Phone Care Team Providers Care Guard Manager Name Role Phone Hillary Jones SURGICAL CODER Primary Care Provider [phone] Reason for Visit * Reason Comments Med Refill Encounter Details Date Type Department Care Team (Late st Contact Info) Description 07/14/2022 Refill [facility] [address] [place] [address] Monroe Belcher MD [address] [place] [address] Social History Tobacco Use Types Packs/Day Years Used Date Smoking Tobacco: Former Cigarettes 1 948 - 1996 Smokeless Tobacco: Never Alcohol Use Standard Drinks/Week Comments Never 0 (1 standard drink = 0.6 oz pur e alcohol) Sex and Gender Information Value Date Recorded Sex Assigned at Not on file Legal Sex Male 12:41 PM EDT Gender Identity Not on file Sexual Orientation Not on file documented as of this encounter Plan of Treatment Not on file documented as of this encounter Visit Diagnoses Not on filedocumented in this encounter Care Teams Guard Manager Relationship Specialty Start Date End Date Hillary Jones NP [address] [place] [address] PCP - General Family Medicine 07/21/21 documented as of this encounter
--- OUTSIDE RECORDS SUMMARY | 2024-11-30 09:13 | XMS_ITS | Encounter Summary ---
Author Organization [facility] Address [address] [facility] [address] [place] [address] Phone Care Team Providers Care Molded Candles Wicker Name Role Phone Hillary Jones NP Primary Care Provider [phone] Reason for Visit * Reason Comments Med Refill Encounter Details Date Type Department Care Team (Late st Contact Info) Description 07/15/2024 [facility]ill [facility] [address] [place] [address] Monroe Belcher MD [address] [place] [address] Social History Tobacco Use Types Packs/Day Years Used Date Smoking Tobacco: Former Cigarettes 1996 Smokeless Tobacco: Never Alcohol Use Standard Drinks/Week Comments Never 0 (1 standard drink = 0.6 oz pur e alcohol) Sex and Gender Information Value Date Recorded Sex Assigned at Not on file Legal Sex Male 12:41 PM EDT Gender Identity Not on file Sexual Orientation Not on file documented as of this encounter Miscellaneous Notes * Telephone Encounter - Kimberlee Frazier - 07/15/2024 7:18 AM CDT Please call and see if this pt would like to schedule follow up appt- first available is fine. Thank you documented in this encounter Plan of Treatment Not on file documented as of this encounter Visit Diagnoses Not on filedocumented in this encounter Care Teams Molded Candles Wicker Relationship Specialty Start Date End Date Hillary Jones NP [address] [place] [address] PCP - General Family Medicine 07/21/21 documented as of this encounter
--- OUTSIDE RECORDS SUMMARY | 2024-11-30 09:13 | XMS_ITS | Clinical Summary ---
Author Organization [facility] Facility Address [address] [place] [id number] Care Team Providers Care Retail Coverage Merchandiser Name Role Phone Hillary Jones NP Primary Care Provider [phone] Allergies Active Allergy Reactions Criticality Noted Date Comments Iodinated Contrast Media High 07/25/2019 Started sweating, almost passed out. Influenza Virus Vaccine Anaphylaxis High 11/05/2020 Nitroglycerin 11/05/2020 Altered Heart Rate Pneumococci 11/05/2020 Swelling at injection site. Medications budesonide-formo terol (SYMBICORT) 160-4.5 MCG/ACT inhaler Inhale 2 puffs 2 (two) times a day if needed Active atorvastatin (LIPITOR) 40 MG tablet Take 40 mg by mouth 1 (one) time each day 1 Active clopidogrel (PLAVIX) 75 MG tablet Take 75 mg by mouth 1 (one) time each day 1 Active aspirin (ST JAG) 81 MG EC tablet Take 81 mg by mouth 1 (one) time each day Active loratadine (CLARITIN) 10 MG tablet Take 10 mg by mouth 1 (one) time each day if needed Active levalbuterol (XOPENEX) 0.31 MG/3ML nebulizer solution Take 1 ampule by nebulization 3 (three) times a day Active cholecalciferol (VITAMIN D-3) 50 MCG (1999) tablet Take 2,000 Units by mouth 1 (one) time each day Active famotidine (PEPCID) 20 MG tablet Take 20 mg by mouth in the morning and 20 mg in the evening. 3 Active prednisoLONE acetate (PRED FORTE) 1 % ophthalmic suspension 1 DROP(S) INTO THE RIGHT EYE FOUR TIMES A DAY 3 Active hydrALAZINE 25 MG tabletIndication s:Essential (primary) hypertension TAKE 1 TABLET BY MOUTH IN THE MORNING AND 1 TABLET IN THE EVENING 180 tablet 3 4 Active amLODIPine (NORVASC) 10 MG tablet Take 1 tablet (10 mg total) by mouth 1 (one) time each day 30 tablet 5 Active Active Problems Problem Noted Date Diagnosed Date Chronic kidney disease stage 3B 07/21/2021 Essential (primary) hypertension 07/21/2021 Primary hyperparathyroidism 07/21/2021 Parathyroid adenoma 07/21/2021 Personal history of prostate cancer 07/21/2021 Microalbuminuria 07/21/2021 Peripheral vascular disease 07/25/2019 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 Family History Medical History Relation Comments Cancer Child Heart disease Father Hypertension Father Stroke Father Diabetes Maternal Grandmother Autosomal Dominant Polycystic Kidney Disease Neg Hx Dementia Neg Hx Gout Neg Hx Kidney disease Neg Hx Relation Status Comments Child Father Maternal Grandmother Mother Social History Tobacco Use Types Packs/Day Years Used Date Smoking Tobacco: Former Cigarettes 1 948 - 1996 Smokeless Tobacco: Never Tobacco Cessation:Counseling Given: Not Answered Alcohol Use Standard Drinks/Week Comments Never 0 (1 standard drink = 0.6 oz pur e alcohol) Sex and Gender Information Value Date Recorded Sex Assigned at Not on file Legal Sex Male 12:41 PM EDT Gender Identity Not on file Sexual Orientation Not on file Last Filed Vital Signs Vital Sign Reading Time Taken Comments Blood Pressure 130/70 08/22/2023 10:05 AM CDT Pulse 70 08/22/2023 10:05 AM CDT Temperature - - Respiratory Rate - - Oxygen Saturation 95% 08/22/2023 10: 05 AM CDT Inhaled Oxygen Concentration - - Weight 85.6 kg (188 lb 12.8 oz) 024 10:05 AM CDT Height 182.9 cm (6') 08/22/2023 10:05 AM CDT Body Mass Index 25.61 08/22/2023 10:05 AM CDT Plan of Treatment Health Maintenance Due Date Last Done Comments Pneumococcal Vaccine: 50+ Ye ars (1 of 2 - PCV) 12/05/1954 Hepatitis B Vaccine Aged Out No longe r eligible based on patient's age to complete this topic Insurance [facility] Medicare Care Teams Retail Coverage Merchandiser Relationship Specialty Start Date End Date Hillary Jones NP [address] [place] [id number] PCP - General Family Medicine 07/21/21
--- OUTSIDE RECORDS SUMMARY | 2024-11-30 09:13 | XMS_ITS | Encounter Summary ---
Author Organization [facility] Address [address] [place] [address] Care Team Providers Care Ecotherapist Name Role Phone Unavailable Primary Care Provider Unavailabl e Encounter Details Date Type Department Care Team (Latest Contact Info) Description 06/25/1997 Outpatient Historical [facility] Rocco Bear MD NO ADDRESS ON FILE Tear of medial cartilage or meniscus of knee, current (Primary Dx) Social History Tobacco Use Types Packs/Day Years Used Date Smoking Tobacco: Never Assessed Sex and Gender Information Value Date Recorded Sex Assigned at Not on file Legal 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
--- OUTSIDE RECORDS SUMMARY | 2024-11-30 09:13 | XMS_ITS | Encounter Summary ---
Author Organization [facility] Address [address] [address] [place] [address] Phone Care Team Providers Care Engine Specialist Name Role Phone Hillary Jones NP Primary Care Provider [phone] Encounter Details Date Type Department Care Team (Late st Contact Info) Description 10/20/2020 Orders Only [facility] [address] [address] [place] [address] Stage 3 chronic kidney disease, not otherwise specified (HCC) Social History Tobacco Use Types Packs/Day Years Used Date Smoking Tobacco: Never Assessed Sex and Gender Information Value Date Recorded Sex Assigned at Not on file Legal Sex Male 12:41 PM EDT Gender Identity Not on file Sexual Orientation Not on file documented as of this encounter Plan of Treatment Not on file documented as of this encounter Visit Diagnoses Diagnosis Stage 3 chronic kidney disease, not otherwise specified (HCC) documented in this encounter Care Teams Engine Specialist Relationship Specialty Start Date End Date Hillary Jones NP [address] [place] [address] PCP - General Family Medicine 07/21/21 documented as of this encounter
--- OUTSIDE RECORDS SUMMARY | 2024-11-30 09:13 | XMS_ITS | Clinical Summary ---
Author Organization [employer] Address [address] [facility] Attn: Epic Prelude ADT [place] [address] Care Team Providers Care It Integration Architect Name Role Phone Unavailable Primary Care Provider Unavailabl e Allergies Active Allergy Reactions Criticality Noted Date Comments Dye Other (See Comments) High 07/25/2019 Started sweating, almost passed out. Medications atorvastatin (LIPITOR) 40 mg tablet Take 1 Tablet (40 mg) by mouth daily. 90 Tablet 1 01/24/20 20 Active azithromycin (ZITHROMAX) 250 mg tablet Take 250 mg by mouth daily. Take 2 tablets by mouth the first day and 1 tablet days 2-5. 01/23/20 20 Active clopidogreL (PLAVIX) 75 mg Tablet Take 1 Tablet (75 mg) by mouth daily. 30 Tablet 2 09/11/19 20 Active isosorbide mononitrate (IMDUR) 30 mg Extended Release 24 hour tablet Take 1 Tablet (30 mg) by mouth daily language therapist. 15 Tablet 2 01/23/20 20 Active losartan (COZAAR) 100 mg tablet Take 100 mg by mouth daily. 01/23/20 20 Active amLODIPine (NORVASC) 2.5 mg tablet Take 1 Tablet (2.5 mg) by mouth daily. 30 Tablet 2 01/23/20 20 Active budesonide-formoteroL (SYMBICORT) 160-4.5 mcg/actuation HFA Aerosol Inhaler Take 2 Puffs by inhalation 2 times daily as needed. 07/25/19 20 Active alendronate (FOSAMAX) 70 mg tabletIndications:Oste oporosis, unspecified osteoporosis type, unspecified pathological fracture presence Take 1 Tablet (70 mg) by mouth every 7 days. empty stomach before other meds,with 16oz of water, stay upright 60 min 12 Tablet 1 02/14/20 24 Active cinacalcet (SENSIPAR) 30 mg TabletIndications:Prim el hyperparathyroidism Take 1 Tablet (30 mg) by mouth 2 times daily with meals. 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 07/25/2019 Encounters Date Type Department Care Team Description 09/26/2024 External Device Data [facility] ABSTRACTION Provider, Abstract 09/25/2024 External Device Data [facility] ABSTRACTION Provider, Abstract from Last 3 Months Social History Tobacco Use Types Packs/Day Years Used Date Smoking Tobacco: Former Cigarettes Q uit: 05/08/1996 Smokeless Tobacco: Never Tobacco Cessation:Counseling Given: Not Answered Sex and Gender Information Value Date Recorded Sex Assigned at Not on file Legal Sex Male 2:40 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 Gender Identity Not on file Sexual Orientation Not on file Last Filed Vital Signs Vital Sign Reading Time Taken Comments Blood Pressure 122/74 02/14/2024 1:23 PM CDT Pulse 65 02/14/2024 1:23 PM CDT Temperature 36.1 C (97 F) 09/11/2019 7:34 AM CDT Respiratory Rate 19 09/11/2019 1:00 PM CDT Oxygen Saturation 98% 02/14/2024 1:23 PM CDT Inhaled Oxygen Concentration - - Weight 81.6 kg (180 lb) 02/14/2024 1:23 PM CDT Height 182.9 cm (6') 02/14/2024 1:23 PM CDT Body Mass Index 24.41 02/14/2024 1:23 PM CDT Plan of Treatment Health Maintenance Due Date Last Done Comments DTAP/TDAP/TD VACCINES (1 - Tdap) 12/05/1954 PNEUMOCOCCAL VACCINE 50+ YEARS (1 of 1 - PCV) 12/05/18 86 ZOSTER VACCINE (1 of 2) 12/05/1985 RSV VACCINE (60+ or ) (1 - 1-dose 75+ series) 12/05/2010 INFLUENZA VACCINE (#1) 2024 Medical Devices Implanted Type Area Boiler Operator Helper Device Identifier Shelf Expiration Date Model / Serial / Lot Stent Omnlnk 8x39mm [id number] - [id number] Implanted:10/2019 (Quantity not on file) Stent Left: Clavicle WATKINS- VASC DEVICE 10/05/2022 [id number] / / [id number] Insurance [facility] [id number]
--- OUTSIDE RECORDS SUMMARY | 2024-11-30 09:13 | XMS_ITS | Clinical Summary ---
Author Organization [facility] Address [address] [place] [address] Phone Care Team Providers Care Financial Health Counselor Name Role Phone Unavailable Primary Care Provider Unavailabl e Allergies Active Allergy Reactions Criticality Noted Date Comments Dye Other (See Comments) High 07/25/2019 Started sweating, almost passed out. Medications budesonide-formo teroL (SYMBICORT) 160-4.5 mcg/actuation HFA Aerosol Inhaler Take 2 Puffs by inhalation 2 times daily as needed. Active clopidogreL (Plavix) 75 mg Tablet Take 1 Tablet (75 mg) by mouth daily. 30 Tablet 2 0 Active losartan (COZAAR) 100 mg tablet Take 100 mg by mouth daily. Active azithromycin (ZITHROMAX) 250 mg tablet Take 250 mg by mouth daily. Take 2 tablets by mouth the first day and 1 tablet days 2-5. Active isosorbide mononitrate (IMDUR) 30 mg Extended Release 24 hour tablet Take 1 Tablet (30 mg) by mouth daily arboreal scientist. 15 Tablet 2 0 Active amLODIPine (NORVASC) 2.5 mg tablet Take 1 Tablet (2.5 mg) by mouth daily. 30 Tablet 2 0 Active atorvastatin (LIPITOR) 40 mg tablet Take 1 Tablet (40 mg) by mouth daily. 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 Gender Identity Not on file Sexual Orientation Not on file Last Filed Vital Signs Vital Sign Reading Time Taken Comments Blood Pressure 142/86 01/23/2020 2:53 PM CDT Pulse 81 01/23/2020 2:53 PM CDT Temperature 36.1 C (97 F) 09/11/2019 7:34 AM CDT Respiratory Rate 19 09/11/2019 1:00 PM CDT Oxygen Saturation 97% 01/23/2020 2:53 PM CDT Inhaled Oxygen Concentration - - Weight 84.4 kg (186 lb) 01/23/2020 2:53 PM CDT Height 182.9 cm (6') 01/23/2020 2:53 PM CDT Body Mass Index 25.23 01/23/2020 2:53 PM CDT Plan of Treatment Health Maintenance Due Date Last Done Comments DTAP/TDAP/TD VACCINES (1 - Tdap) 12/05/1954 PNEUMOCOCCAL VACCINE 50+ YEARS (1 of 1 - PCV) 12/05/18 86 ZOSTER VACCINE (1 of 2) 12/05/1985 RSV VACCINE (60+ or ) (1 - 1-dose 75+ series) 12/05/2010 INFLUENZA VACCINE (#1) 2024 Medical Devices Implanted Type Area Hip Hop Dancer Device Identifier Shelf Expiration Date Model / Serial / Lot Stent Omnlnk 8x39mm [id number] - [id number] Implanted:09/10 at [facility] (Quantity not on file) Stent Left: Clavicle WATKINS- VASC DEVICE 10/05/2022 [id number] Insurance [facility] DUAL COMPLETE [facility] PPO D-SNP
--- NOTE | 2024-11-30 09:17 | XRR_ITS ---
PROCEDURE INFORMATION: Exam: XR Chest Exam date and time: 11/30/2024 9:39 AM Age: 88 years old Clinical indication: Pain; Chest pressure; Additional info: Chest pain TECHNIQUE: Imaging protocol: Radiologic exam of the chest. Views: 1 view. COMPARISON: CR XR chest 1V portable [id number] 09/13/2019 8:24 AM FINDINGS: Lungs: Unremarkable. No consolidation. Pleural spaces: Unremarkable. No pleural effusion. No pneumothorax. Heart/Mediastinum: Unremarkable. No cardiomegaly. Vasculature: Left subclavian stent noted along the midline. Bones/joints: Unremarkable. XR/XR chest 1V portable [id number] IMPRESSION: No acute findings.
[2024-11-30 09:41] LABS: Hematocrit 43.9 % (37-53); Hemoglobin 14.30 g/dL (11.27-16.99); Mean Corpuscular HGB Conc 32.6 g/dL (30-55); Mean Corpuscular Hemoglobin 29.9 pg (27-33); Mean Corpuscular Volume 91.8 fl (82-101); Nucleated Red Blood Cells % 0 %; Platelet Count 309 10^3/cmm (157-399); Red Blood Count 4.78 10^6/uL (3.85-5.65); White Blood Count 9.33 10^3/uL (3.29-11.43)
--- NOTE | 2024-11-30 09:46 | W.ED.SOB ---
HPI - SOB/Dyspnea General: Chief Complaint: Shortness of Breath/Dyspnea Stated Complaint: sob Time Seen by Provider: 11/30/24 09:16 History of Present Illness: HPI Narrative: 88-year-old male presents to the emergency room with complaint of shortness of breath. He has a history of COPD he is a former smoker he has been off his Symbicort for well over a year. He has had increasing shortness of breath productive cough of clear mucus last several weeks with the heat and humidity. Denies fever sweats chills no hemoptysis. Denies chest pain. Associated symptoms: Reports chest congestion; Deny abdominal pain, chest pain or fever(s) Related Data Home Medications ?Medication ?Instructions ?Recorded ?Confirmed aspirin 81 mg chewable tablet 81 mg PO DAILY 09/13/19 09/13/19 atorvastatin 40 mg tablet 40 mg PO DAILY 09/13/19 09/13/19 clopidogrel 75 mg tablet 75 mg PO DAILY 09/13/19 09/13/19 losartan 25 mg tablet 25 mg PO DAILY 09/13/19 09/13/19 Previous Rx's ?Medication ?Instructions ?Recorded hydrocodone 5 mg-acetaminophen 325 1 tab PO Q6H PRN pain #20 tabs 09/13/19 mg tablet meclizine 25 mg tablet 12.5 mg (1/2 x 25 mg) PO QID PRN 04/07/21 dizziness #14 tabs prednisone 20 mg tablet 20 mg PO DAILY #7 tabs 04/07/21 albuterol sulfate 90 mcg/actuation 2 inh inhalation Q4H PRN shortness 11/30/24 aerosol inhaler of breath or wheezing #18 grams methylprednisolone 4 mg tablets in See Rx Instructions PO .COMPLEX 11/30/24 a dose pack (Medrol (Chalo)) #21 ea Allergies Allergy/AdvReac Type Severity Reaction Status Date / Time Iodinated Contrast Media Allergy Unknown Verified 07/08/19 15:05 flu vaccine Allergy ADR-Cough Uncoded 07/08/19 15:05 Review of Systems Const: Denies: fever(s) or chills Card: Denies: chest pain Resp: Reports: dyspnea, productive cough (Clear mucus), wheezing and chest congestion GI: Denies: abdominal pain : Denies: dysuria, urinary frequency or urinary urgency Musc: Denies: neck pain or back pain Skin/Breast: Denies: rash PFSH ED PFSH: Medical History Pneumothorax BPH (benign prostatic hyperplasia) Coronary artery disease Surgical History H/O vasectomy S/P TURP History of appendectomy Social History Smoking and tobacco/nicotine status: former use of tobacco/nicotine Alcohol intake: never Physical Exam Const: COMMON NORMALS: no acute distress GENERAL APPEARANCE: cooperative and comfortable ORIENTATION/CONSCIOUSNESS: Yes awake, Yes oriented to person, Yes oriented to place and Yes oriented to time HENMT: COMMON NORMALS: normocephalic, atraumatic and hearing grossly normal bilaterally HEAD & SCALP: normocephalic and atraumatic Resp: AUSCULTATION: wheezes Cardio: COMMON NORMALS: regular rate, regular rhythm and No murmurs present (Cardio) RATE: regular rate RHYTHM: regular rhythm GI: COMMON NORMALS: Soft to palpation and No hepatosplenomegaly present AUSCULTATION: Yes normoactive bowel sounds PALPATION: Yes Soft to palpation, No Tenderness to palpation present (GI), No Guarding due to palpation present (GI) and Yes No hepatosplenomegaly present Extremity: COMMON NORMALS: normal to inspection, capillary refill normal, no clubbing, cyanosis or edema, no calf tenderness and no pedal edema Neuro: SENSORIUM/ORIENTATION: Yes oriented to person, Yes oriented to place and Yes oriented to time Skin: COMMON NORMALS: no rashes or lesions noted GENERAL SKIN EXAM: no rashes or lesions noted Course Vital Signs: Vital signs: Vital Signs Temperature 97.4 F L 11/30/24 09:21 Pulse Rate 85 11/30/24 13:24 Respiratory Rate 17 11/30/24 12:30 Blood Pressure 155/77 11/30/24 13:24 Pulse Oximetry 95 11/30/24 13:24 Oxygen Delivery Me thod Room Air 11/30/24 10:00 Fraction of Inspir ed Oxygen 21 11/30/24 10:00 MDM - SOB/Dyspnea Medical Decision Making Labs and imaging reviewed no findings acute coronary syndrome troponin is negative EKG does not show any acute changes chest x-ray negative. Patient has been maintaining normal oxygen saturations on room air his entire visit. He did get improvement with the nebulizer. Will discharge home with steroid taper and DuoNebs. Encouraged him to follow-up with his primary care doctor. Need to look at other inhaled medications that might be covered by his insurance he was previously on Symbicort but can no longer afford there are other alternatives he can review with his primary care doctor. Medical Records I reviewed the patient's medical records. Lab Data I reviewed the patient's lab results. 11/30/24 09:26 11/30/24 09:26 Labs/Radiology: Radiology Impressions Chest X-Ray 11/30/24 09:17 IMPRESSION: No acute findings. Laboratory Results WBC 9.33 10^3/uL (3.29-11.43) 11/30/24 09: RBC 4.78 10^6/uL (3.85-5.65) 11/30/24 09: Hgb 14.30 g/dL (11.27-16.99) 11/30/24 09: Hct 43.9 % (37-53) 11/30/24 09: MCV 91.8 fl (82-101) 11/30/24 09: MCH 29.9 pg (27-33) 11/30/24 09: MCHC 32.6 g/dL (30-55) 11/30/24 09:26 RDW 13.5 % (12.1-15.1) 11/30/24 09:26 Plt Count 309 10^3/cmm (157-399) 11/30/24 09: MPV 9.9 fL (7.4-10.4) 11/30/24 09: Neut % (Auto) 65.4 % 11/30/24 09: Lymph % (Auto) 23.3 % 11/30/24 09: Dolores % (Auto) 6.9 % 11/30/24 09: Eos % (Auto) 2.8 % 11/30/24 09: Baso % (Auto) 1.2 % 11/30/24 09: Neut # (Auto) 6.11 10^3/uL (1.8-7.7) 11/30/24 09: Lymph # (Auto) 2.2 10^3/uL (0.8-4.8) 11/30/24 09:26 Dolores # (Auto) 0.6 10^3/uL (0.2-0.9) 11/30/24 09:26 Eos # (Auto) 0.3 10^3/uL (0.0-0.8) 11/30/24 09:26 Baso # (Auto) 0.1 10^3/uL (0.0-0.1) 11/30/24 09:26 Nucleated RBC % (auto) 0 % 11/30/24 09: Nucleated RBCs # 0.0 /100WBC 11/30/24 09:26 Specimen Type Arterial 11/30/24 09:58 Sample Site Radial, right 11/30/24 09:58 ABG pH 7.46 (7.35-7.45) H 11/30/24 09:58 ABG pCO2 32.7 mmHg (35-45) L 11/30/24 09:58 ABG pO2 76.4 mmHg (80.0-100.0) L 11/30/24 09:58 ABG PO2/FiO2 Ratio 363 11/30/24 09:58 ABG HCO3 23.0 mmol/L (22-26) 11/30/24 09:58 ABG O2 Saturation 97.2 11/30/24 09:58 ABG Base Excess -0.2 mmol/L (-2.0-2.0) 11/30/24 09:58 James Test Pos 11/30/24 09:58 A-a O2 Gradient 4.2 mmHg (5-10) L 11/30/24 09:58 Hematocrit 42.0 % (42-52) 11/30/24 09:58 Hgb O2 Saturation 95.3 % (95-100) 11/30/24 09:58 Carboxyhemoglobin 1.0 %THgb (0.4-20.1) 11/30/24 09:58 Methemoglobin 0.9 % (0.4-1.5) 11/30/24 09:58 Total Hemoglobin 13.7 g/dL (14-18) L 11/30/24 09:58 Sodium 142.0 mmol/L (131-143) 11/30/24 09:58 Potassium 3.7 mmol/L (3.5-5.0) 11/30/24 09:58 Glucose 206.0 mg/dL (70-115) H 11/30/24 09:58 Ionized Calcium 1.4 mmol/L (1.1-1.4) 11/30/24 09:58 O2 Delivery Device Room air 11/30/24 09:58 FiO2 21.0 % 11/30/24 09:58 Central Service Technician ID Sean 11/30/24 09:58 Sodium 140 mmol/L (136-145) 11/30/24 09:26 Potassium 4.5 mmol/L (3.5-5.1) 11/30/24 09:26 Chloride 103 mmol/L (98-107) 11/30/24 09:26 Carbon Dioxide 25 mmol/L (22-29) 11/30/24 09:26 Anion Gap 16.5 (5-19) 11/30/24 09:26 BUN 14 mg/dL (8-23) 11/30/24 09:26 Creatinine 1.3 mg/dL (0.7-1.2) H 11/30/24 09:26 GFR Calculation Not Reportable 11/30/24 09:26 Glucose 123 mg/dL (65-115) H 11/30/24 09:26 Calculated Osmolality 292 mOsm/kg (285-295) 11/30/24 09:26 Calcium 11.4 mg/dL (8.5-10.5) H 11/30/24 09:26 Total Bilirubin 0.5 mg/dL (0.15-1.2) 11/30/24 09:26 AST 13 U/L (0-40) 11/30/24 09:26 ALT 8 U/L (0-41) 11/30/24 09:26 Alkaline Phosphatase 106 U/L (40-130) 11/30/24 09:26 Troponin T Baseline 18 ng/L (0-15) H 11/30/24 09:26 Troponin T 120 Minute 14.16 ng/L (0-15) 11/30/24 11:32 Delta Troponin T -3.84 ABS# (0-10) L 11/30/24 11:32 Total Protein 7.4 g/dL (6.6-8.7) 11/30/24 09:26 Albumin 4.2 g/dL (3.5-5.2) 11/30/24 09:26 Globulin 3.2 g/dL (1.3-4.6) 11/30/24 09:26 All radiology interpretation(s) finalized by discharge Discharge Plan Discharge Patient Disposition: Home Clinical Impression: Acute exacerbation of chronic obstructive airways disease Condition: Stable Prescriptions: New methylprednisolone [Medrol (Chalo)] 4 mg tablets,dose pack See Rx Instructions .ROUTE .COMPLEX Qty: 21 0RF Rx Instructions: orally per package directions albuterol sulfate 90 mcg/actuation HFA aerosol inhaler 2 inh INHALATION Q4H PRN (Reason: shortness of breath or wheezing) Qty: 18 0RF No Action atorvastatin 40 mg tablet 40 mg PO DAILY clopidogrel 75 mg tablet 75 mg PO DAILY losartan 25 mg tablet 25 mg PO DAILY aspirin 81 mg Tablet,Chewable 81 mg PO DAILY hydrocodone-acetaminophen 5-325 mg tablet 1 tab PO Q6H PRN (Reason: pain) Qty: 20 0RF prednisone 20 mg tablet 20 mg PO DAILY Qty: 7 0RF meclizine 25 mg tablet 12.5 mg PO QID PRN (Reason: dizziness) Qty: 14 0RF Discharge Orders: Discharge ED (Routine); Ordered 11/30/24 Ordered By: Osman Fox Referrals: Hillary Jones, MIDDLE [employer]CHOOL RESOURCE TEACHER [Primary Care Provider, Nurse Practitioner] Discharge Diet: Usual diet Discharge Activity: Resume usual activity Patient Instructions: COPD (Chronic Obstructive Pulmonary Disease) (ED), Opioid Safety, Pain Management, Patient Portal & Leonel Instructions Activity Restrictions/Additional Instructions: Thank you for choosing [facility] for your healthcare needs today. It is very important that you follow up as instructed or that you return to the Emergency Department should you have concerns or if your condition changes or worsens in any way. You were seen in the emergency room with complaints of weakness cough and shortness of breath. Chest x-ray was normal. Your blood pressure was mildly elevated responded to medications given continue your current blood pressure medications you have been prescribed. Heart enzymes and EKG did not show any signs of acute coronary syndrome recommend you start steroid taper and use albuterol as needed. You should follow-up with your doctor to see if they can find you a replacement for the Symbicort that you have not been able to take. Print Language: Montserratian Coding Level of Care Code ED [facility] Nurse Practitioner for Juan David Grant
[2024-11-30 09:54] LABS: Troponin(5th) Baseline 18 ng/L (0-15)
[2024-11-30 09:55] LABS: Alanine Aminotransferase 8 U/L (0-41); Albumin Level 4.2 g/dL (3.5-5.2); Alkaline Phosphatase 106 U/L (40-130); Anion Gap 16.5 (5-19); Aspartate Amino Transferase 13 U/L (0-40); Blood Urea Nitrogen 14 mg/dL (8-23); Calcium 11.4 mg/dL (8.5-10.5); Carbon Dioxide 25 mmol/L (22-29); Chloride 103 mmol/L (98-107); Creatinine Clr Calc Pharmacy 44.5144; Globulin 3.2 g/dL (1.3-4.6); Glucose 123 mg/dL (65-115); Osmolality Calculated 292 mOsm/kg (285-295); Potassium 4.5 mmol/L (3.5-5.1); Sodium 140 mmol/L (136-145); Total Protein 7.4 g/dL (6.6-8.7)
[2024-11-30 10:09] LABS: ABG PCO2 32.7 mmHg (35-45); ABG PH Result 7.46 (7.35-7.45); Alveolar-Arterial Oxygen Gradi 4.2 mmHg (5-10); Arterial Blood Gas Hematocrit 42.0 % (42-52); Blood Gas Allen Test Pos; Blood Gas Operator Identificat WALCI; Blood Gas Sample Site Radial, right; Blood Gas Sample Type Arterial; Carboxyhemoglobin 1.0 %THgb (0.4-20.1); Glucose Level-ABG 206.0 mg/dL (70-115); HCO3 ABG 23.0 mmol/L (22-26); Ionized Calcium Level - ABG 1.4 mmol/L (1.1-1.4); Methemoglobin 0.9 % (0.4-1.5); Oxygen Saturation ABG 97.2; PO2 ABG 76.4 mmHg (80.0-100.0); PO2 FiO2 Ratio Arterial Blood 363; Potassium Level - ABG 3.7 mmol/L (3.5-5.0); Sodium Level - ABG 142.0 mmol/L (131-143)
[2024-11-30] MEDS: methylPREDNISolone sod succ 125 mg/2 mL INJ IVP (10:20)
[2024-11-30] MEDS: hyDRALAzine 20 mg/mL INJ 1 mL IVP (10:20)
--- NOTE | 2024-11-30 11:17 | ECG_ITS ---
[facility] Date: 2024-11-30 Pat Name: Maikel De La Fuente Department: Room: Gender: Male Glazing Machine Operator: : [id number] Requested By: Osmna Mckay Order Number: [id number] Reading MD: Measurements Intervals [place] Rate: 73 P: 49 MN: 187 QRS: -31 QRSD: 101 T: 53 QT: 393 QTc: 433 Interpretive Statements SINUS RHYTHM WITH FREQUENT SUPRAVENTRICULAR PREMATURE COMPLEXES LEFT AXIS DEVIATION [QRS AXIS < -30] [email or web address]
[2024-11-30 12:07] LABS: Troponin 5 2HR 14.16 ng/L (0-15)
[2024-11-30 12:10] LABS: Troponin 5 2HR Delta -3.84 ABS# (0-10)
== END 2024-11-30 13:25 | disposition home or self-care (01) ==
PROVIDERS: Emergency Provider Family Medicine; PCP Nurse Practitioner Primary Care
DX: J44.1 Chronic obstructive pulmonary disease with (acute) exacerbation (principal); Z79.02 Long term (current) use of antithrombotics/antiplatelets; Z79.82 Long term (current) use of aspirin; Z87.891 Personal history of nicotine dependence; I25.10 Atherosclerotic heart disease of native coronary artery without angina pectoris
CPT/HCPCS: 36415; 36600; 71045; 80051; 80053; 82330; 82805; 84484; 85025; 93005; 94640; 96374; 96375; 99285; J0360; J2919; J9999

== ENCOUNTER 2025-02-16 14:06 | Emergency (ER) | payer MEDICARE, SELFPAY ==
[2025-02-16 14:09] VITALS: BP 174/95; PULSE 73; TEMP 36.5; O2SAT 97
--- NOTE | 2025-02-16 14:17 | XRR_ITS ---
PROCEDURE INFORMATION: Exam: XR Left Hip Exam date and time: 02/16/2025 2:28 PM Age: 89 years old Clinical indication: Injury or trauma; Fall; Blunt trauma (contusions or hematomas); Left; Hip and pelvic region; Additional info: Left hip pain, fall, w/ pelvis TECHNIQUE: Imaging protocol: Radiologic exam of the left hip. Views: 2 or 3 views hip with pelvis when performed. COMPARISON: CT abdomen pelvis w con* [id number] 09/13/2019 9:23 AM FINDINGS: Bones/joints: Unremarkable. No acute fracture. Soft tissues: Unremarkable. XR/XR hip LT 2-3V wo/w pel* [id number] IMPRESSION: No acute findings.
--- OUTSIDE RECORDS SUMMARY | 2025-02-16 14:17 | XMS_ITS | Encounter Summary ---
Author Organization [facility] Address [address] [place] [address] Care Team Providers Care Electric Scoop Operator Name Role Phone Unavailable Primary Care Provider Unavailabl e Encounter Details Date Type Department Care Team (Latest Contact Info) Description 06/25/1997 Outpatient Historical [facility] Rocco Bear MD NO ADDRESS ON FILE Tear of medial cartilage or meniscus of knee, current (Primary Dx) Social History Tobacco Use Types Packs/Day Years Used Date Smoking Tobacco: Never Assessed Sex and Gender Information Value Date Recorded Sex Assigned at Not on file 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
--- OUTSIDE RECORDS SUMMARY | 2025-02-16 14:17 | XMS_ITS | Encounter Summary ---
Author Organization [facility] Address [address] [place] [address] Phone Care Team Providers Care Well Shooter Name Role Phone Hillary Jones TRANSIT SPECIALIST Primary Care Provider [phone] Reason for Visit * Reason Comments Med Refill Encounter Details Date Type Department Care Team (Late st Contact Info) Description 07/14/2022 Refill [facility] [address] [place] [phone] Monroe Belcher MD [address] [place] [phone] Social History Tobacco Use Types Packs/Day [...] on filedocumented in this encounter Care Teams Well Shooter Relationship Specialty Start Date End Date Hillary Jones NP [address] [place] [address] PCP - General Family Medicine 07/21/21 documented as of this encounter
--- OUTSIDE RECORDS SUMMARY | 2025-02-16 14:17 | XMS_ITS | Encounter Summary ---
Author Organization [facility] Address [address] [place] [address] Phone Care Team Providers Care Packing Machine Can Feeder Name Role Phone Hillary Jones NP Primary Care Provider [phone] Encounter Details Date Type Department Care Team (Late st Contact Info) Description 10/20/2020 Orders Only [facility] [address] [place] [address] Stage 3 chronic kidney disease, [...] (HCC) documented in this encounter Care Teams Packing Machine Can Feeder Relationship Specialty Start Date End Date Hillary Jones NP [address] [place] [address] PCP - General Family Medicine 07/21/21 documented as of this encounter
--- OUTSIDE RECORDS SUMMARY | 2025-02-16 14:17 | XMS_ITS | Clinical Summary ---
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
--- OUTSIDE RECORDS SUMMARY | 2025-02-16 14:17 | XMS_ITS | Clinical Summary ---
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 15 Tablet 2 01/23/20 20 Active losartan [...] Encounters Date Type Department Care Team Description 02/04/2025 External Device Data [facility] ABSTRACTION Provider, Abstract 01/28/2025 External Device Data [facility] ABSTRACTION Provider, Abstract 01/07/2025 External Device Data [facility] ABSTRACTION Provider, Abstract 12/25/2024 External Device Data [facility] ABSTRACTION Provider, Abstract from Last 3 Months Social History Tobacco Use Types Packs/Day Years Used Date Smoking Tobacco: Former Cigarettes Q uit: 05/08/1996 Smokeless Tobacco: Never Tobacco Cessation:Counseling Given: Not Answered Sex and Gender Information Value Date Recorded Sex Assigned at Not on file 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
--- OUTSIDE RECORDS SUMMARY | 2025-02-16 14:17 | XMS_ITS | Clinical Summary ---
Author Organization [facility] Address [address] [place] [address] Care Team Providers Care Curing Supervisor Name Role Phone Hillary Jones NP Primary Care Provider [phone] Allergies Active Allergy Reactions Criticality Noted Date [...] patient's age to complete this topic Insurance [facility] Medicare Care Teams Curing Supervisor Relationship Specialty Start Date End Date Hillary Jones NP [address] [place] [id number] PCP - General Family Medicine 07/21/21
--- OUTSIDE RECORDS SUMMARY | 2025-02-16 14:17 | XMS_ITS | Encounter Summary ---
Author Organization [facility] Address [address] [address] [place] [address] Phone Care Team Providers Care Radiagraph Operator Name Role Phone Hillary Jones NP Primary Care Provider [phone] Reason for Visit * Reason Comments Med Refill Encounter Details Date Type Department Care Team (Late st Contact Info) Description 07/15/2024 Refill [facility] [address] [place] [address] [place] [address] Monroe Belcher MD [address] [place] [address] [place] [address] Social History Tobacco Use Types [...] on filedocumented in this encounter Care Teams Radiagraph Operator Relationship Specialty Start Date End Date Hillary Jones NP [address] [place] [address] PCP - General Family Medicine 07/21/21 documented as of this encounter
--- NOTE | 2025-02-16 14:42 | W.ED.EXTPRO ---
Documented by User: HENRY Stoddard 02/16/25 16:43 HPI - Extremity Problem General: Chief complaint: Extremity Injury, Lower Stated complaint: hip pain from a fall monday Source: patient Mode of arrival: ambulatory Limitations: no limitations History of Present Illness: Patient is an 89-year-old male who presents the emergency department due to left posterior hip pain for the past couple days. He states that couple days ago he was attempting to sit down on his walker, when he missed and fell directly onto his buttocks. He notes he was having pain in both his right and left side, but now is just the left. He is ambulatory, noted to be ambulatory back into his room at this time. States pain has been controlled with Tylenol, he just went to make sure he did not fracture anything. No loss of bowel or bladder function, no saddle anesthesia. No radiation down the legs. No paralysis. Did not hit his head, no other injuries with the fall. His vitals are stable at this time, he denies need for pain medication. MD Complaint: joint pain (Left posterior hip) Onset (ago): day(s) (2) Pain Consistency: constant Radiation: none Associated symptoms: Deny chest pain, fever(s) or rash Context: other (Fall 2 days ago) Related Data Home Medications ?Medication ?Instructions ?Recorded ?Confirmed aspirin 81 mg chewable tablet 81 mg PO DAILY 09/13/19 09/13/19 atorvastatin 40 mg tablet 40 mg PO DAILY 09/13/19 09/13/19 clopidogrel 75 mg tablet 75 mg PO DAILY 09/13/19 09/13/19 losartan 25 mg tablet 25 mg PO DAILY 09/13/19 09/13/19 Previous Rx's ?Medication ?Instructions ?Recorded hydrocodone 5 mg-acetaminophen 325 1 tab PO Q6H PRN pain #20 tabs 09/13/19 mg tablet meclizine 25 mg tablet 12.5 mg (1/2 x 25 mg) PO QID PRN 04/07/21 dizziness #14 tabs prednisone 20 mg tablet 20 mg PO DAILY #7 tabs 04/07/21 albuterol sulfate 90 mcg/actuation 2 inh inhalation Q4H PRN shortness 11/30/24 aerosol inhaler of breath or wheezing #18 grams methylprednisolone 4 mg tablets in See Rx Instructions PO .COMPLEX 11/30/24 a dose pack (Medrol (Chalo)) #21 ea Allergies Allergy/AdvReac Type Severity Reaction Status Date / Time Iodinated Contrast Media Allergy Unknown Verified 02/16/25 14:16 flu vaccine Allergy ADR-Cough Uncoded 02/16/25 14:16 Review of Systems General: Reports: 10 or more systems reviewed and unremarkable except in HPI and below Const: Reports: other (Fall); Denies: fever(s) or chills Card: Denies: chest pain Resp: Denies: dyspnea or productive cough GI: Denies: abdominal pain, nausea, vomiting or diarrhea : Denies: flank pain Musc: Reports: joint pain (Left posterior hip); Denies: neck pain, back pain, extremity pain, extremity swelling, joint swelling, joint redness, joint warmth, limited range of motion or muscle weakness Skin/Breast: Denies: rash Neuro: Denies: headache(s), numbness in extremities or weakness in extremities PFSH ED PFSH: Medical History Pneumothorax BPH (benign prostatic hyperplasia) Coronary artery disease Surgical History H/O vasectomy S/P TURP History of appendectomy Social History Smoking and tobacco/nicotine status: former use of tobacco/nicotine Alcohol intake: never Physical Exam Const: COMMON NORMALS: no acute distress, patient oriented x3, no limitations, healthy appearing, alert and well nourished OTHER: Ambulatory into emergency department HENMT: COMMON NORMALS: normocephalic and atraumatic HEAD & SCALP: normocephalic and atraumatic Neck/C-Spine: COMMON NORMALS: full ROM, supple and no meningeal signs Resp: COMMON NORMALS: normal respiratory effort, No use of accessory muscles and clear to auscultation bilaterally AUSCULTATION: clear to auscultation bilaterally Cardio: COMMON NORMALS: regular rate and regular rhythm RATE: regular rate RHYTHM: regular rhythm Back/Pelvis: COMMON NORMALS: thoracic and lumbar spine normal to inspection, no thoracic nor lumbar tenderness, thoraco-lumbar ROM normal and straight leg raise negative bilaterally Extremity: COMMON NORMALS: full ROM, capillary refill normal, no joint enlargement and no clubbing, cyanosis or edema NARRATIVE EXTREMITY EXAM: Mild reproducible tenderness to palpation to coccygeal region and left posterior hip. No tenderness to the left lateral hip or anterior proximal thigh. No deformity of the left lower extremity. Neuro: COMMON NORMALS: patient oriented x3, moves all extremities, no focal motor deficits and no sensory deficits noted SENSORIUM/ORIENTATION: Yes alert MENINGEAL SIGNS: Yes no meningeal signs Skin: COMMON NORMALS: no rashes or lesions noted GENERAL SKIN EXAM: no rashes or lesions noted Course Vital Signs: Vital signs: Vital Signs Temperature 97.7 F 02/16/25 14:09 Pulse Rate 73 02/16/25 14:09 Blood Pressure 174/95 02/16/25 14:09 Pulse Oximetry 97 02/16/25 14:09 Oxygen Delivery Me thod Room Air 02/16/25 14:09 MDM - Extremity (Nontraumatic) Medical Decision Making Patient presents 2 days status post fall on sacral region, reporting pain to the left posterior hip. Noted to be ambulatory in the emergency department, and adequate pain control at home with Tylenol. He had no red flag back symptoms to report, he did not hit his head and no other injuries noted with the fall. The exam overall unremarkable, there is some mild reproducible chest palpation left posterior hip. X-ray does not demonstrate any acute fracture, and I suspect pelvic contusion. Has been not complaining of much pain here in the ED, denied pain medications, overall stable for discharge home. Lab Data Radiology Impressions Hip/Pelvis X-Ray 02/16/25 14:17 IMPRESSION: No acute findings. All radiology interpretation(s) finalized by discharge Discharge Plan Discharge Patient Disposition: Home Clinical Impression: Pelvic contusion Qualifiers: Encounter type: initial encounter Qualified Code(s): S30.0XXA - Contusion of lower back and pelvis, initial encounter Condition: Stable Prescriptions: No Action atorvastatin 40 mg tablet 40 mg PO DAILY clopidogrel 75 mg tablet 75 mg PO DAILY losartan 25 mg tablet 25 mg PO DAILY aspirin 81 mg Tablet,Chewable 81 mg PO DAILY hydrocodone-acetaminophen 5-325 mg tablet 1 tab PO Q6H PRN (Reason: pain) Qty: 20 0RF prednisone 20 mg tablet 20 mg PO DAILY Qty: 7 0RF meclizine 25 mg tablet 12.5 mg PO QID PRN (Reason: dizziness) Qty: 14 0RF methylprednisolone [Medrol (Chalo)] 4 mg tablets,dose pack See Rx Instructions .ROUTE .COMPLEX Qty: 21 0RF Rx Instructions: orally per package directions albuterol sulfate 90 mcg/actuation HFA aerosol inhaler 2 inh INHALATION Q4H PRN (Reason: shortness of breath or wheezing) Qty: 18 0RF Discharge Orders: Discharge ED (Routine); Ordered 02/16/25 Ordered By: Jesus Alberto Cain Referrals: Hillary Jones FNP [Primary Care Provider, Nurse Practitioner] Patient Instructions: Patient Portal & Leonel Instructions Activity Restrictions/Additional Instructions: Pelvic Contusion Discharge You have been diagnosed with a pelvic contusion (bruise) after your recent fall. No broken bones were seen on your X-ray. Please follow these instructions to help you recover safely: Activity and Mobility - Stay as active as you can. Move around your home as tolerated, using a cane or walker if recommended. Avoid staying in bed for long periods, as this can increase your risk of complications. - Resume your usual activities as you feel able, but avoid strenuous exercise or heavy lifting until cleared by your doctor. - If you have trouble getting out of bed, dressing, bathing, or making meals, let your care team know. You may benefit from physical or occupational therapy. Pain Management - Take pain medications as prescribed. [id number] acetaminophen (Tylenol) is usually safe, but avoid NSAIDs (like ibuprofen) unless your doctor says otherwise. - Use ice packs on the sore area for 15-20 minutes at a time, several times a day, to help with pain and swelling. Fall Prevention - Prevent future falls: Remove loose rugs, keep walkways clear, and use night lights at home. - Wear supportive shoes and use handrails when available. - If you feel dizzy or unsteady, sit down right away and ask for help. When to Seek Medical Attention - Go to the emergency room or call your doctor if you have: - New or worsening pain, swelling, or bruising in your pelvis or hips - Trouble walking or standing - Weakness, numbness, or tingling in your legs - Blood in your urine or trouble urinating - Fever, chills, or confusion - Any new falls or injuries Follow-Up - Keep your follow-up appointment as scheduled. Your doctor may want to check your progress and make sure you are healing well. - If you are on blood thinners or have other medical conditions, follow your doctor?s instructions closely and report any unusual bleeding or symptoms. Additional Support - If you need help at home, ask about home health services or community resources. - Let your care team know if you have any concerns about your ability to care for yourself or your safety at home. Summary Most people with a pelvic contusion recover well with rest, pain control, and safe movement. Staying active and preventing falls are the most important steps for your recovery. Print Language: Somali Coding Level of Care Code ED Jackspooler for Chg Fwd Documented by User: Osman Fox DO 02/16/25 16:44 HPI - Extremity Problem General: Chief complaint: Extremity Injury, Lower Stated complaint: hip pain from a fall monday Related Data Home Medications ?Medication ?Instructions ?Recorded ?Confirmed aspirin 81 mg chewable tablet 81 mg PO DAILY 09/13/19 09/13/19 atorvastatin 40 mg tablet 40 mg PO DAILY 09/13/19 09/13/19 clopidogrel 75 mg tablet 75 mg PO DAILY 09/13/19 09/13/19 losartan 25 mg tablet 25 mg PO DAILY 09/13/19 09/13/19 Previous Rx's ?Medication ?Instructions ?Recorded hydrocodone 5 mg-acetaminophen 325 1 tab PO Q6H PRN pain #20 tabs 09/13/19 mg tablet meclizine 25 mg tablet 12.5 mg (1/2 x 25 mg) PO QID PRN 04/07/21 dizziness #14 tabs prednisone 20 mg tablet 20 mg PO DAILY #7 tabs 04/07/21 albuterol sulfate 90 mcg/actuation 2 inh inhalation Q4H PRN shortness 11/30/24 aerosol inhaler of breath or wheezing #18 grams methylprednisolone 4 mg tablets in See Rx Instructions PO .COMPLEX 11/30/24 a dose pack (Medrol (Chalo)) #21 ea Allergies Allergy/AdvReac Type Severity Reaction Status Date / Time Iodinated Contrast Media Allergy Unknown Verified 02/16/25 14:16 flu vaccine Allergy ADR-Cough Uncoded 02/16/25 14:16 [facility] ED PFSH: Medical History Pneumothorax BPH (benign prostatic hyperplasia) Coronary artery disease Surgical History H/O vasectomy S/P TURP History of appendectomy Social History Smoking and tobacco/nicotine status: former use of tobacco/nicotine Alcohol intake: never Course Vital Signs: Vital signs: Vital Signs Temperature 97.7 F 02/16/25 14:09 Pulse Rate 73 02/16/25 14:09 Blood Pressure 174/95 02/16/25 14:09 Pulse Oximetry 97 02/16/25 14:09 Oxygen Delivery Me thod Room Air 02/16/25 14:09 MDM - Extremity (Nontraumatic) Medical Decision Making Patient presents 2 days status post fall on sacral region, reporting pain to the left posterior hip. Noted to be ambulatory in the emergency department, and adequate pain control at home with Tylenol. He had no red flag back symptoms to report, he did not hit his head and no other injuries noted with the fall. The exam overall unremarkable, there is some mild reproducible chest palpation left posterior hip. X-ray does not demonstrate any acute fracture, and I suspect pelvic contusion. Has been not complaining of much pain here in the ED, denied pain medications, overall stable for discharge home. Chart reviewed and patient discussed with midlevel. Agree with assessment and plan. Lab Data Radiology Impressions Hip/Pelvis X-Ray 02/16/25 14:17 IMPRESSION: No acute findings. Discharge Plan Discharge Patient Disposition: Home Clinical Impression: Pelvic contusion Qualifiers: Encounter type: initial encounter Qualified Code(s): S30.0XXA - Contusion of lower back and pelvis, initial encounter Condition: Stable Prescriptions: No Action atorvastatin 40 mg tablet 40 mg PO DAILY clopidogrel 75 mg tablet 75 mg PO DAILY losartan 25 mg tablet 25 mg PO DAILY aspirin 81 mg Tablet,Chewable 81 mg PO DAILY hydrocodone-acetaminophen 5-325 mg tablet 1 tab PO Q6H PRN (Reason: pain) Qty: 20 0RF prednisone 20 mg tablet 20 mg PO DAILY Qty: 7 0RF meclizine 25 mg tablet 12.5 mg PO QID PRN (Reason: dizziness) Qty: 14 0RF methylprednisolone [Medrol (Chalo)] 4 mg tablets,dose pack See Rx Instructions .ROUTE .COMPLEX Qty: 21 0RF Rx Instructions: orally per package directions albuterol sulfate 90 mcg/actuation HFA aerosol inhaler 2 inh INHALATION Q4H PRN (Reason: shortness of breath or wheezing) Qty: 18 0RF Discharge Orders: Discharge ED (Routine); Ordered 02/16/25 Ordered By: Jesus Alberto Cain Referrals: Hillary Jones FNP [Primary Care Provider, Nurse Practitioner] Patient Instructions: Patient Portal & Leonel Instructions Activity Restrictions/Additional Instructions: Pelvic Contusion Discharge You have been diagnosed with a pelvic contusion (bruise) after your recent fall. No broken bones were seen on your X-ray. Please follow these instructions to help you recover safely: Activity and Mobility - Stay as active as you can. Move around your home as tolerated, using a cane or walker if recommended. Avoid staying in bed for long periods, as this can increase your risk of complications. - Resume your usual activities as you feel able, but avoid strenuous exercise or heavy lifting until cleared by your doctor. - If you have trouble getting out of bed, dressing, bathing, or making meals, let your care team know. You may benefit from physical or occupational therapy. Pain Management - Take pain medications as prescribed. [id number]-[id number] acetaminophen (Tylenol) is usually safe, but avoid NSAIDs (like ibuprofen) unless your doctor says otherwise. - Use ice packs on the sore area for 15-20 minutes at a time, several times a day, to help with pain and swelling. Fall Prevention - Prevent future falls: Remove loose rugs, keep walkways clear, and use night lights at home. - Wear supportive shoes and use handrails when available. - If you feel dizzy or unsteady, sit down right away and ask for help. When to Seek Medical Attention - Go to the emergency room or call your doctor if you have: - New or worsening pain, swelling, or bruising in your pelvis or hips - Trouble walking or standing - Weakness, numbness, or tingling in your legs - Blood in your urine or trouble urinating - Fever, chills, or confusion - Any new falls or injuries Follow-Up - Keep your follow-up appointment as scheduled. Your doctor may want to check your progress and make sure you are healing well. - If you are on blood thinners or have other medical conditions, follow your doctor?s instructions closely and report any unusual bleeding or symptoms. Additional Support - If you need help at home, ask about home health services or community resources. - Let your care team know if you have any concerns about your ability to care for yourself or your safety at home. Summary Most people with a pelvic contusion recover well with rest, pain control, and safe movement. Staying active and preventing falls are the most important steps for your recovery. Print Language: Somali Coding Level of Care Code ED Jackspooler for Juan David Grant
== END 2025-02-16 16:43 | disposition home or self-care (01) ==
PROVIDERS: Emergency Provider Physician Assistant; PCP Nurse Practitioner Primary Care
DX: S30.0XXA Contusion of lower back and pelvis, initial encounter (principal); Z79.02 Long term (current) use of antithrombotics/antiplatelets; Z79.82 Long term (current) use of aspirin; W19.XXXA Unspecified fall, initial encounter; I25.10 Atherosclerotic heart disease of native coronary artery without angina pectoris; Z87.891 Personal history of nicotine dependence
CPT/HCPCS: 73502; 99283